=== PATIENT | male | born 1970 | race Caucasian/White ===

== ENCOUNTER 2021-02-03 12:08 | Emergency (ER) | payer OTHER, SELFPAY ==
[2021-02-03 12:18] VITALS: BP 140/90; PULSE 63; RESP 16; TEMP 36.7; O2SAT 97; BMI 35.9
--- NOTE | 2021-02-03 12:25 | ED_ITS ---
HPI - General Adult General Chief complaint: Urogenital-Male Stated complaint: Low ABD pain X 4 days Time Seen by Provider: 02/03/21 12:24 Source: patient Mode of arrival: Ambulatory Limitations: no limitations History of Present Illness HPI narrative: 50-year-old otherwise healthy gentleman presents with 3 days of pelvic floor/prostate pain. He is having difficulty sitting due to the discomfort. He has been able to stool and void appropriately but notes discomfort in the perineal area with both of these. He describes no penile discharge, no new sexual partners, no genital rashes, no vomiting or diarrhea. Has a moderate umbilical hernia that has not been bothering him and today he is noticing increasing low abdominal pain. He describes no fevers, cough, chills, palpitations, shortness of breath. He was seen in a walk-in clinic 48 hours ago blood work was done but no other interventions. He has not received blood work results at this point. The perineal discomfort is becoming troublesome enough that his wanted him to be further evaluated today. Related Data Home Medications Medication Instructions Recorded Confirmed citalopram 20 mg tablet 40 mg PO QDAY #0 12/10/12 omeprazole 20 mg capsule,delayed 20 mg PO QDAY #0 12/10/12 release zolpidem 10 mg tablet 12.5 mg PO HS #0 12/10/12 Previous Rx's Medication Instructions Recorded ciprofloxacin HCl 500 mg tablet 500 mg PO BID #14 tab 02/03/21 (Cipro) Allergies Allergy/AdvReac Type Severity Reaction Status Date / Time MYACINS Allergy Unknown Uncoded 09/30/17 12:25 PENICILLIN Allergy Unknown Uncoded 09/30/17 12:25 Review of Systems Review of Systems Narrative: Remainder of complete review of systems is otherwise unremarkable except for that included in the HPI. Patient History tobacco type: smokeless tobacco Substance Use Type: does not use Exam Narrative Exam Narrative: General: Healthy appearing, in no acute distress. Able to give a complete and coherent history. Well-nourished well-developed HEENT: Moist mucous membranes, normal sclera with reactive pupils, Respiratory: Lungs are clear to auscultation, no wheezing no rales no rhonchi. Full and symmetrical air movement Cardiac: Regular rate and rhythm no murmurs no bruits Abdomen: Soft, tender over the suprapubic area without rebound or guarding, good bowel tones, no flank pain. He does have a a moderate umbilical hernia and no evidence of inguinal hernias bilaterally Skin: Warm and dry, no rashes Genital exam: No evidence of external hemorrhoids, no rashes and exquisite tenderness over the perineum so much so that rectal exam is deferred Neurologic: Grossly neurologically intact with no obvious asymmetries or abnormalities Extremities: No trauma, well perfused Psych: Cooperative, appropriate insight and affect Initial Vital Signs Initial Vital Signs: Vital Signs Temperature 98.0 F 02/03/21 12:18 Pulse Rate 63 02/03/21 12:18 Respiratory Rate 16 02/03/21 12:18 Blood Pressure 140/90 02/03/21 12:18 Pulse Oximetry 97 02/03/21 12:18 Course Orders Ordered: ED Orders 02/03/21 13:16 Urinalysis and Microscopic Stat Discontinued Medications Acetaminophen (Acetaminophen 325 Mg Tablet) 325 mg PO NOW ONE Stop: 02/03/21 13:12 Ciprofloxacin (Ciprofloxacin 250 Mg Tablet) 500 mg PO NOW ONE Stop: 02/03/21 13:12 Ibuprofen (Ibuprofen 400 Mg Tablet) 400 mg PO NOW ONE Stop: 02/03/21 13:12 Vital Signs Vital signs: Vital Signs - 8 hr 02/03/21 12:18 Temperature 98.0 F Pulse Rate 63 Respiratory Rate 16 Blood Pressure 140/90 Pulse Oximetry 97 Medical Decision Making Lab Data Labs: Urine Dip Bedside Urine Glucose Negative Bedside Urine Bilirubin - Negative Bedside Urine Ketone - Negative Urine Specific [place] 1.015 Bedside Urine Occult Blood - Negative Bedside Urine pH 7 Bedside Urine Protein - Negative Bedside Urine Urobilinogen - Negative Bedside Urine Nitrite - Negative Bedside Urine Leukocytes - Negative Esterase Point of care testing: Urine Dip Bedside Urine Glucose Negative Bedside Urine Bilirubin - Negative Bedside Urine Ketone - Negative Urine Specific [place] 1.015 Bedside Urine Occult Blood - Negative Bedside Urine pH 7 Bedside Urine Protein - Negative Bedside Urine Urobilinogen - Negative Bedside Urine Nitrite - Negative Bedside Urine Leukocytes - Negative Esterase MDM Narrative Medical decision making narrative: 50-year-old gentleman with 3-4 days of increasing perineal pain and discomfort. He has had similar symptoms was diagnosed with prostatitis and went away with antibiotics. At this point his clinical exam is absolutely consistent with acute prostatitis however with his urine completely clear the diagnosis remains somewhat questionable. Reviewed the mild inconsistencies with him and recommended ibuprofen and Tylenol for pain control in inflammation and will place him on 7 days. Have asked him to return if symptoms are not improving, worsen or change. Discharge Plan Departure Patient Disposition: Home Clinical Impression: Prostatitis Qualifiers: Prostatitis type: acute Qualified Code(s): N41.0 - Acute prostatitis Instructions: Prostatitis Activity Restrictions/Additional Instructions: Thank you for coming in today Your clinical symptoms and exam are entirely consistent with prostatitis. I have given you a prescription for ciprofloxacin to help with this. Using ibuprofen for its anti-inflammatory properties is very helpful in controlling pain as well. Your urine sample in the emergency department was completely normal. It has been sent for microscopic exam. Typically with prostatitis we do expect to see some type of abnormalities in the urine. If you find that the antibiotics are not working, you need to return to the ER and we need to rethink the initial diagnosis. I hope you improved quickly Prescriptions: New ciprofloxacin HCl [Cipro] 500 mg tablet 500 mg PO BID Qty: 14 RF: 0 No Action omeprazole 20 MG capsule,delayed release(DR/EC) 20 mg PO QDAY Qty: 0 RF: 0 citalopram 20 MG tablet 40 mg PO QDAY Qty: 0 RF: 0 zolpidem 10 MG tablet 12.5 mg PO HS Qty: 0 RF: 0 Referrals: Javier Lake MD [Primary Care Provider] -
[2021-02-03] MEDS: CIPROFLOXACIN 250 MG TABLET 500 MG PO (13:26)
[2021-02-03] MEDS: ACETAMINOPHEN 325 MG TABLET PO (13:26)
[2021-02-03] MEDS: IBUPROFEN 400 MG TABLET PO (13:26)
[2021-02-03 13:28] LABS: Bacteria Urine None Seen; RBC Urine None Seen (0-5/HPF)
[2021-02-03 13:29] LABS: Appearance Urine UA CLEAR; Bilirubin Urine UA NEGATIVE (NEGATIVE); Color Urine UA YELLOW; Glucose Urine UA NEGATIVE (Negative); Ketones Urine UA NEGATIVE (NEGATIVE); Leukocyte Esterase Urine UA NEGATIVE (NEGATIVE); Nitrite Urine UA NEGATIVE (Negative); Occult Blood Urine UA NEGATIVE (Negative); Protein Urine UA NEGATIVE (Negative); Specific Gravity Urine UA 1.015 (1.000-1.035); Urobilinogen Urine UA 0.2 E.U./dL (0.2); pH Urine UA 7.5 (4.5-8.0)
[2021-02-03 13:36] LABS: Culture Indicated Urine Cult Not Indicated; Squamous Epithelial Cell Urine 0-1 /HPF (0-5/HPF); WBC Urine 0-1/HPF (0-5/HPF)
[2021-02-03 13:46] VITALS: BP 134/83; PULSE 58; O2SAT 98
== END 2021-02-03 13:47 | disposition home or self-care (01) ==
PROVIDERS: Emergency Provider Emergency Medicine; PCP Family Medicine
DX: N41.0 Acute prostatitis (principal)
CPT/HCPCS: 81001; 81003; 99283

== ENCOUNTER 2021-03-08 12:13 | Inpatient (IN) | payer OTHER, SELFPAY ==
[2021-03-08] VITALS (14 sets, daily range): BP systolic 116–135; BP diastolic 56–80; PULSE 75–83; RESP 15–18; TEMP 36.7–38.4; O2SAT 95–99; BMI 35.2
--- NOTE | 2021-03-08 12:30 | ED_ITS ---
HPI - Skin/Abscess/Foreign Bdy General Chief complaint: Skin/Abscess/Foreign Body Stated complaint: painful swollen mass on left side of buttox Time Seen by Provider: 03/08/21 12:30 Source: patient Mode of arrival: Ambulatory Limitations: no limitations History of Present Illness HPI narrative: This is a 50-year-old male comes emergency department having had prostatitis in the last several weeks. He saw the urologist in the office and had prostate massage on Thursday. He states it was quite excruciating. The fluid since has not grown any infection. Patient states that he has since developed increasing redness and swelling and pain of the left buttock that radiates towards the rectal area. Patient had fevers up to 101 F at home he has had nausea but no active vomiting. He has had occasional intra-abdominal pain but majority has been in the buttock and rectal region. He had 1 bowel movement last night which was quite painful passing as well as attempting to sit on a stool. He has had warmth and redness. Patient has not had similar symptoms in the past he is currently on Cipro 500 mg twice daily. He takes medication for bipolar. He had hernia repair in his younger years. Patient has quit using tobacco or chew. He does drink alcohol intermittently. He occasionally uses marijuana but denies other illicit. He is accompanied by his today. Related Data Home Medications Medication Instructions Recorded Confirmed divalproex 500 mg tablet,extended 1,000 mg PO QPM 03/08/21 03/08/21 release 24 hr tamsulosin 0.4 mg capsule 0.4 mg PO QPM 03/08/21 03/08/21 Previous Rx's Medication Instructions Recorded ciprofloxacin HCl 500 mg tablet 500 mg PO BID #14 tab 02/03/21 (Cipro) Allergies Allergy/AdvReac Type Severity Reaction Status Date / Time erythromycin base Allergy Severe Anaphylaxis Verified 03/08/21 17:13 Macrolide Antibiotics Allergy Severe Anaphylaxis Verified 03/08/21 17:13 Penicillins Allergy Severe Anaphylaxis Verified 03/08/21 17:13 Review of Systems Review of Systems ROS Unobtainable: All systems reviewed & are unremarkable except as noted in HPI and below Patient History Medical History Bipolar 1 disorder Surgical History S/P foot surgery, right Family History Mother Cancer Father Cancer Social History household members: spouse Smoking Status: Former smoker alcohol intake: current tobacco type: smokeless tobacco Substance Use Type: marijuana Exam Narrative Exam Narrative: GENERAL: Alert and oriented x three, male in moderate distress. HEENT: Head normocephalic, atraumatic, EOMI, pupils reactive, face symmetric, moist mucous membranes NECK: Supple, full range of motion CARDIOVASCULAR: Regular rate and rhythm without murmurs, rubs or gallops. RESPIRATORY: Breath sounds equal bilaterally, no wheezes rales or rhonchi. ABDOMEN: Soft, nontender. Normoactive bowel sounds all 4 quadrants. No guarding or rebound, rigidity, no mass, patient has warmth swelling and significant tenderness of the left buttock on the medial portion of the gluteal crease. There is an area of about 9 cm x 5cm of warmth, erythema and induration with no obvious palpable fluctuance. : No CVA tenderness. Male: normal external examination, no penile discharge or lesions, testicles non-tender, cremasteric reflex intact, no inguinal hernias noted. EXTREMITIES: Normal range of motion, no clubbing or edema. Neurovascularly intact NEUROLOGICAL: Cranial nerves II through XII grossly intact. Moving all extremities SKIN: Warm, dry, no petechiae, no rashes or lesions otherwise noted. Initial Vital Signs Initial Vital Signs: Vital Signs Temperature 98.1 F 03/08/21 12:22 Pulse Rate 78 03/08/21 12:22 Respiratory Rate 18 03/08/21 12:22 Blood Pressure 118/56 L 03/08/21 12:22 Pulse Oximetry 99 03/08/21 12:22 Course Orders Ordered: Acetaminophen (Acetaminophen 325 Mg Tablet) 975 mg PO Q8H PRN PRN Reason: Pain, Mild (1-3) Last Admin: 03/09/21 21:09 Dose: 975 mg Documented by: Admin: 03/09/21 11:39 Dose: 975 mg Documented by: Admin: 03/08/21 19:59 Dose: 975 mg Documented by: MAXIMILIAN Acetaminophen (Acetaminophen 325 Mg Tablet) 975 mg PO PACUNOW PRN PRN Reason: Pain, Mild (1-3) Benzocaine (Benzocaine/Menthol 1 Lizzeth Pkt) 1 each PO PRN PRN PRN Reason: Sore Throat Ciprofloxacin (Ciprofloxacin 250 Mg Tablet) 500 mg PO BID [facility] Divalproex Sodium (Divalproex Er 250 Mg Tab) 1,000 mg PO 2100 [facility] Last Admin: 03/09/21 20:25 Dose: 1,000 mg Documented by: Admin: 03/08/21 21:09 Dose: 1,000 mg Documented by: MAXIMILIAN Docusate Sodium (Docusate 100 Mg Capsule) 100 mg PO BID [facility] Last Admin: 03/10/21 09:05 Dose: 100 mg Documented by: Admin: 03/09/21 20:25 Dose: 100 mg Documented by: Admin: 03/09/21 08:01 Dose: 100 mg Documented by: Admin: 03/08/21 19:59 Dose: 100 mg Documented by: MAXIMILIAN Fentanyl (Fentanyl 100 Mcg/2 Ml Inj) 0 mcg IV Q5M PRN PRN Reason: Pain, Moderate (4-6) Hydromorphone HCl (Hydromorphone 2 Mg Inj) 2 mg IV Q3H PRN PRN Reason: Pain, Severe (7-10) Hydromorphone HCl (Hydromorphone 1 Mg Inj) 1 mg IV Q3H PRN PRN Reason: Pain, Moderate (4-6) Hydromorphone HCl (Hydromorphone 2 Mg Inj) 0 mg IV Q5M PRN PRN Reason: Pain, Moderate (4-6) Hydroxyzine HCl (Hydroxyzine 50 Mg/Ml Inj) 25 mg IM NOW PRN PRN Reason: Pain, Mild (1-3) Hydroxyzine Pamoate (Hydroxyzine Pamoate 25 Mg Capsule) 25 mg PO NOW PRN PRN Reason: Pain, Mild (1-3) Lactated Ringer's (Lactated Ringers) 1,000 mls @ 42 mls/hr IV CONT [facility] Last Infusion: 03/10/21 12:34 Dose: 0 mls/hr Documented by: Admin: 03/10/21 11:00 Dose: 42 mls/hr Documented by: RUI Lactated Ringer's (Lactated Ringers) 1,000 mls @ 120 mls/hr IV CONT [facility] Last Admin: 03/10/21 13:16 Dose: 120 mls/hr Documented by: TEOFILO Ketorolac Tromethamine (Ketorolac 10 Mg Tablet) 10 mg PO Q6HR PRN PRN Reason: Pain, Mild (1-3) Stop: 03/13/21 18:33 Last Admin: 03/10/21 09:05 Dose: 10 mg Documented by: Admin: 03/10/21 00:14 Dose: 10 mg Documented by: Admin: 03/09/21 18:20 Dose: 10 mg Documented by: Admin: 03/09/21 11:18 Dose: 10 mg Documented by: ALEAH Lidocaine (Lidocaine 5% Oint 35 Gm) 1 applic TOP QID PRN PRN Reason: Pain, Mild (1-3) Last Admin: 03/09/21 14:02 Dose: 1 applic Documented by: ALEAH Lorazepam (Lorazepam 2 Mg/Ml Inj) 0.25 mg IV NOW PRN PRN Reason: Anxiety Metoclopramide HCl (Metoclopramide 10 Mg/2 Ml Inj) 10 mg IV NOW PRN PRN Reason: Nausea And Vomiting Ondansetron HCl (Ondansetron 4 Mg/2 Ml Inj) 4 mg IV NOW PRN PRN Reason: Nausea And Vomiting Oxycodone HCl (Oxycodone Ir 10 Mg Tablet) 10 mg PO Q3HR PRN PRN Reason: Pain, Severe (7-10) Last Admin: 03/10/21 09:05 Dose: 10 mg Documented by: Admin: 03/10/21 05:58 Dose: 10 mg Documented by: Admin: 03/10/21 03:36 Dose: 10 mg Documented by: Admin: 03/09/21 20:25 Dose: 10 mg Documented by: Admin: 03/09/21 15:54 Dose: 10 mg Documented by: ELIDA Oxycodone HCl (Oxycodone Ir 5 Mg Tablet) 5 mg PO PACUNOW PRN PRN Reason: Mild or moderate pain Pantoprazole Sodium (Pantoprazole Dr 40 Mg Tablet) 40 mg PO DAILY@0700 [facility] Last Admin: 03/10/21 06:04 Dose: 40 mg Documented by: VALE Polyethylene Glycol (Polyethylene Glycol 3350 17 Gm Powd.Pack) 17 gm PO DAILY [facility] Last Admin: 03/10/21 09:05 Dose: 17 gm Documented by: Admin: 03/09/21 08:55 Dose: 17 gm Documented by: ALEAH Tamsulosin HCl (Tamsulosin 0.4 Mg Capsule) 0.4 mg PO QPM [facility] Discontinued Medications Acetaminophen (Acetaminophen 325 Mg Tablet) 975 mg PO NOW ONE Stop: 03/08/21 14:31 Last Admin: 03/08/21 14:34 Dose: 975 mg Documented by: THANIA Hydrocodone Bitart/Acetaminophen (Hydrocodone/Acet 10/325 Tablet) 1 tab PO Q6HR PRN PRN Reason: Pain, Moderate (4-6) Last Admin: 03/09/21 08:01 Dose: 1 tab Documented by: Admin: 03/09/21 01:22 Dose: 1 tab Documented by: Admin: 03/08/21 18:53 Dose: 1 tab Documented by: MAXIMILIAN Bupivacaine HCl (Bupivacaine 0.5% (Pf) Vial) 30 ml INJ NOW ONE Stop: 03/10/21 11:30 Last Admin: 03/10/21 11:29 Dose: 20 ml Documented by: ROBERT Epinephrine HCl (Epinephrine 1 Mg/Ml) 0.15 mg INJ NOW ONE Stop: 03/10/21 11:31 Last Admin: 03/10/21 11:31 Dose: 0.15 mg Documented by: ROBERT Vancomycin HCl/Dextrose (Vancomycin) 2,000 mg in 400 mls @ 200 mls/hr IV NOW ONE Stop: 03/08/21 14:43 Last Infusion: 03/08/21 15:31 Dose: 0 mls/hr Documented by: Admin: 03/08/21 13:17 Dose: 200 mls/hr Documented by: THANIA Metronidazole (Flagyl) 500 mg in 100 mls @ 100 mls/hr IV NOW ONE Stop: 03/08/21 13:43 Last Infusion: 03/08/21 15:07 Dose: 0 mls/hr Documented by: Admin: 03/08/21 14:02 Dose: 100 mls/hr Documented by: THANIA Ciprofloxacin (Cipro) 400 mg in 200 mls @ 200 mls/hr IV Q12H [facility] Last Infusion: 03/10/21 08:05 Dose: 0 mls/hr Documented by: Admin: 03/10/21 05:58 Dose: 200 mls/hr Documented by: Infusion: 03/09/21 23:09 Dose: 0 mls/hr Documented by: Admin: 03/09/21 18:19 Dose: 200 mls/hr Documented by: Infusion: 03/09/21 07:53 Dose: 0 mls/hr Documented by: Admin: 03/09/21 06:26 Dose: 200 mls/hr Documented by: Infusion: 03/08/21 20:58 Dose: 200 mls/hr Documented by: Admin: 03/08/21 18:53 Dose: 200 mls/hr Documented by: MAXIMILIAN Metronidazole (Flagyl) 500 mg in 100 mls @ 100 mls/hr IV Q8H [facility] Last Admin: 03/10/21 13:14 Dose: Not Given Documented by: Infusion: 03/10/21 05:30 Dose: 0 mls/hr Documented by: Admin: 03/10/21 04:26 Dose: 100 mls/hr Documented by: Infusion: 03/09/21 23:08 Dose: 0 mls/hr Documented by: Admin: 03/09/21 20:25 Dose: 100 mls/hr Documented by: Infusion: 03/09/21 15:02 Dose: 100 mls/hr Documented by: Admin: 03/09/21 14:02 Dose: 100 mls/hr Documented by: Infusion: 03/09/21 05:40 Dose: 0 mls/hr Documented by: Admin: 03/09/21 04:36 Dose: 100 mls/hr Documented by: Infusion: 03/08/21 23:00 Dose: 0 mls/hr Documented by: Admin: 03/08/21 20:55 Dose: 100 mls/hr Documented by: MAXIMILIAN Ketorolac Tromethamine (Ketorolac 30 Mg/Ml Vial) 30 mg IV NOW ONE Stop: 03/08/21 12:45 Last Admin: 03/08/21 12:54 Dose: 30 mg Documented by: THANIA Ketorolac Tromethamine (Ketorolac 30 Mg/Ml Vial) 30 mg IV Q6H [facility] Stop: 03/13/21 18:34 Last Admin: 03/09/21 06:25 Dose: 30 mg Documented by: Admin: 03/09/21 01:17 Dose: 30 mg Documented by: Admin: 03/08/21 19:16 Dose: 30 mg Documented by: MAXIMILIAN Pantoprazole Sodium (Pantoprazole 40 Mg Vial) 40 mg IV DAILY [facility] Last Admin: 03/09/21 08:01 Dose: 40 mg Documented by: Admin: 03/09/21 05:43 Dose: 40 mg Documented by: FRANK Consultations Consultation #1: Hi-you had patient's imaging. She would like us to speak with urology. Dr. Do was re-contacted after speaking with urology. They suspect that this is truly a perineal abscess that is now progressing in size and location and that patient never truly had prostatitis is there prostate fluid culture was negative after 5 days which is very atypical. The patient has been on Cipro b.i.d. since then. Patient at this time he does not feel it is a urological candidate for treatment. Patient was covered with vanco and Flagyl. He does have an allergy to penicillins which is anaphylaxis so have not given any Rocephin or Zosyn coverage. She is comfortable with the current coverage. She will see patient. She is unsure if she plans to take him to the OR today. Consultation #2: Dr. Bolivar-urology. States that he suspects this was truly a perineal abscess forming and was not an actual prostatitis as patient had massage with but no additional changes and prostate fluids have been negative. And he feels this is more of a general surgery issue. Consultation #3: Dr. Littlejohn, kindly accepts for admission with consultation by General surgery. He is going to talk with Dr. Do about when or if the patient is going to the OR. Vital Signs Vital signs: Vital Signs - 8 hr 03/08/21 12:22 03/08/21 13:00 03/08/21 14:00 Temperature 98.1 F 101.1 F H Pulse Rate 78 75 77 Respiratory Rate 18 16 15 Blood Pressure 118/56 L 135/63 117/56 L Pulse Oximetry 99 99 96 03/08/21 14:29 03/08/21 14:30 03/08/21 15:00 Temperature 101.1 F H Pulse Rate 77 75 Respiratory Rate 15 16 Blood Pressure 116/56 L 130/73 Pulse Oximetry 96 96 03/08/21 15:14 03/08/21 15:30 03/08/21 15:58 Temperature 100.5 F H 99.2 F Pulse Rate 77 Respiratory Rate 16 Blood Pressure 132/67 Pulse Oximetry 95 MDM - Skin/Abscess/Foreign Bdy Lab Data Result diagrams: 03/10/21 05:28 03/10/21 05:28 Labs: Lab Results 03/08/21 03/08/21 03/08/21 Range/Units 12:45 12:45 12:45 WBC 11.3 H (4.5-11.0) X10^3/uL RBC 4.40 L (4.5-5.9) X10^6/uL Hgb 14.0 (13.5-17.5) g/dL Hct 41.2 (41-53) % MCV 93.6 (80-100) fL MCH 31.9 (26-34) PG MCHC 34.1 (30-36) % RDW 12.8 (11.6-14.8) % Plt Count 180 (150-400) X10^3/uL Neut % (Auto) 77.1 H (50-75) % Lymph % (Auto) 11.0 L (25-40) % [place] % (Auto) 10.8 (3-14) % Eos % (Auto) 0.8 L (2-4) % Baso % (Auto) 0.3 (0-2) % Neut # (Auto) 8700 H (0756-8167) /uL Lymph # (Auto) 1200 (6470-3898) /uL [place] # (Auto) 1200 H (0-900) /uL Eos # (Auto) 100 (0-450) /uL Baso # (Auto) 0 (0-100) /uL Sodium 141 (137-145) mmol/L Potassium 4.5 (3.4-5.1) mmol/L Chloride 106 (98-107) mmol/L Carbon Dioxide 31 (22-32) mmol/L BUN 12 (9-20) mg/dL Creatinine 0.96 (0.66-1.25) mg/dL Estimated GFR > 60.0 (>60) mL/min BUN/Creatinine Ratio 12.5 (6-22) Glucose 102 H (70-100) mg/dL Lactate 1.4 (0.7-2.1) mmol/L Calcium 9.4 (8.4-10.2) mg/dL Total Bilirubin 1.2 (0.2-1.3) mg/dL AST 16 L (17-59) IU/L ALT 14 (<50) IU/L Alkaline Phosphatase 45 (38-126) U/L Total Protein 7.1 (6.3-8.2) g/dL Albumin 4.0 (3.5-5.0) g/dL Globulin 3.1 (1.7-4.1) g/dL Albumin/Globulin Ratio 1.3 (1.0-2.8) Procalcitonin 0.08 (<0.5) ng/mL Urine Color Urine Appearance Urine pH (4.5-8.0) Ur Specific [place] (1.000-1.035) Urine Protein (Negative) Urine Glucose (UA) (Negative) g/dL Urine Ketones (NEGATIVE) Urine Occult Blood (Negative) Urine Nitrate (Negative) Urine Bilirubin (NEGATIVE) Urine Urobilinogen (0.2) E.U./dL Ur Leukocyte Esterase (NEGATIVE) Urine RBC (0-5/HPF) Urine WBC (0-5/HPF) Ur Squamous Epith Cells (0-5/HPF) Urine Bacteria (None) Ur Culture Indicated? SARS-CoV-2 (PCR) (Negative) 03/08/21 03/08/21 Range/Units 14:10 14:26 WBC (4.5-11.0) X10^3/uL RBC (4.5-5.9) X10^6/uL Hgb (13.5-17.5) g/dL Hct (41-53) % MCV (80-100) fL MCH (26-34) PG MCHC (30-36) % RDW (11.6-14.8) % Plt Count (150-400) X10^3/uL Neut % (Auto) (50-75) % Lymph % (Auto) (25-40) % [place] % (Auto) (3-14) % Eos % (Auto) (2-4) % Baso % (Auto) (0-2) % Neut # (Auto) (5807-9991) /uL Lymph # (Auto) (4059-2547) /uL [place] # (Auto) (0-900) /uL Eos # (Auto) (0-450) /uL Baso # (Auto) (0-100) /uL Sodium (137-145) mmol/L Potassium (3.4-5.1) mmol/L Chloride (98-107) mmol/L Carbon Dioxide (22-32) mmol/L BUN (9-20) mg/dL Creatinine (0.66-1.25) mg/dL Estimated GFR (>60) mL/min BUN/Creatinine Ratio (6-22) Glucose (70-100) mg/dL Lactate (0.7-2.1) mmol/L Calcium (8.4-10.2) mg/dL Total Bilirubin (0.2-1.3) mg/dL AST (17-59) IU/L ALT (<50) IU/L Alkaline Phosphatase (38-126) U/L Total Protein (6.3-8.2) g/dL Albumin (3.5-5.0) g/dL Globulin (1.7-4.1) g/dL Albumin/Globulin Ratio (1.0-2.8) Procalcitonin (<0.5) ng/mL Urine Color Yellow Urine Appearance Clear Urine pH 7.0 (4.5-8.0) Ur Specific [place] 1.010 (1.000-1.035) Urine Protein Trace H (Negative) Urine Glucose (UA) Negative (Negative) g/dL Urine Ketones 1+ H (NEGATIVE) Urine Occult Blood Negative (Negative) Urine Nitrate Negative (Negative) Urine Bilirubin Negative (NEGATIVE) Urine Urobilinogen 0.2 (0.2) E.U./dL Ur Leukocyte Esterase Negative (NEGATIVE) Urine RBC None seen (0-5/HPF) Urine WBC 0-1/hpf (0-5/HPF) Ur Squamous Epith Cells 0-1 /hpf (0-5/HPF) Urine Bacteria None seen (None) Ur Culture Indicated? Cult not indicated SARS-CoV-2 (PCR) Negative (Negative) Imaging Data CT scan - abdomen/pelvis: Radiologist's Impression: [address] [address] [address] Scan Report Signed Patient: Mandeep Umanzor MR#: [id number] : 1970 Acct:[id number] Age/Sex: 50 / M Date of Service: 03/08/21 Loc: ED Accession Number: [id number] ?? Procedure: CT abdomen pelvis w con Ordering Provider: Mishel Adames D.O. PROCEDURE:? CT ABDOMEN PELVIS W CON ? INDICATIONS:? LL buttock absc/cellulitis, start Tues prostate massage Mon. ? TECHNIQUE:? After the administration of intravenous contrast, axial sections acquired from the lung bases to the pubic symphysis.? Coronal and sagittal reformats were performed.? For radiation dose reduction, the following was used:? automated exposure control, adjustment of mA and/or kV according to patient size.? ? COMPARISON:? None. ? FINDINGS:? Image quality:? Excellent.? ? Lung bases:? Unremarkable. Heart:? No significant findings. ? ABDOMEN: Liver:? Liver is normal in size.? Hepatic steatosis is seen.? Well-circumscribed hypodense areas involving lateral segment of left hepatic lobe are seen measures 2.3 x 2.5 cm in size series 2, image 24, and 1 cm in size series 2, image 20. Gallbladder:? Within normal limits. Biliary ducts:? Unremarkable.? ? Pancreas:? Unremarkable.? ? Spleen:? Unremarkable.? ? Adrenal Glands:? Unremarkable.? ? Kidneys and Ureters:? Unremarkable.? ? ? Stomach and Bowel:? There is no bowel obstruction or abnormal bowel wall thickening.? No mesenteric fat stranding.? No abscess collection. Peritoneum:? No abnormal intraperitoneal fluid.? No free air.? ? Ventral Wall: ? Moderate size umbilical hernia is seen containing fat only. Abdominal Nodes:? No retroperitoneal or mesenteric adenopathy by size criteria.? Vessels:? Aorta and inferior vena cava are normal in size.? ? PELVIS: Pelvic Organs:? Unremarkable.? ? Bladder:? Unremarkable.? ? Pelvic Nodes: No enlarged lymph nodes.? Miscellaneous:? There is extensive subcutaneous fat stranding in perianal soft tissue with subcutaneous emphysema in perianal soft tissue particularly along medial aspect of left upper thigh with air-fluid level and suggestion of developing abscess collection measures 2.8 x 6.5 cm in transverse and AP dimensions. ? Bones:? No suspicious bony lesion.? No bony erosive changes.? No acute vertebral body compression fracture.? Chronic appearing mild anterior wedge compression deformity at L1 level is seen. ? ? IMPRESSION:? 1. Left perianal/medial left upper thigh cellulitis and abscess formation as described above. 2. No peritoneal free fluid or free air.? No peritoneal abscess collection.? No bowel obstruction or abnormal bowel wall thickening. 3.? Hepatic steatosis and suggestion of left hepatic cysts as above.? ? ? Dictated by: Mikhail Ward M.D. on 03/08/2021 at 13:49 ? ? Approved by: Mikhail Ward M.D. on 03/08/2021 at 13:58?? [facility] Narrative Medical decision making narrative: This is a 50-year-old male who comes with complaint of increased redness swelling and pain of the left buttock who has q uite indurated area but no easily palpated fluctuance. It is quite close to the perineal area he states symptoms began to develop on Thursday. The day before on Thursday he had a prostate massage to obtain prostatic fluid for culture which he states has been negative so far. He has been on Cipro for assumed prostatitis. Patient is febrile here in the department although he does not meet septic cr iteria. I spoke with General surgery as I feel this patient might be a candidate for the OR. Um she asked that we speak with Urology. I spoke with patient's neurologist who saw him on Thursday who feels this was likely a perineal abscess all along which has since progressed and not truly prostatitis or you look urologic issue. Re-contacted general surgery who asked that we admit him under medicine with Dr. Littlejohn who accepted for admission. Discharge Plan Departure Patient Disposition: Admitted As Inpatient Clinical Impression: Abscess, perianal, Cellulitis and abscess of buttock Admit Date/Time: 03/08/21 16:33 Admit Provider: Chester Littlejohn
--- NOTE | 2021-03-08 12:38 | DI.CT.S_ITS ---
PROCEDURE: CT ABDOMEN PELVIS W CON INDICATIONS: LL buttock absc/cellulitis, start Tues prostate massage Mon. TECHNIQUE: After the administration of intravenous contrast, axial sections acquired from the lung bases to the pubic symphysis. Coronal and sagittal reformats were performed. For radiation dose reduction, the following was used: automated exposure control, adjustment of mA and/or kV according to patient size. COMPARISON: None. FINDINGS: Image quality: Excellent. Lung bases: Unremarkable. Heart: No significant findings. ABDOMEN: Liver: Liver is normal in size. Hepatic steatosis is seen. Well-circumscribed hypodense areas involving lateral segment of left hepatic lobe are seen measures 2.3 x 2.5 cm in size series 2, image 24, and 1 cm in size series 2, image 20. Gallbladder: Within normal limits. Biliary ducts: Unremarkable. Pancreas: Unremarkable. Spleen: Unremarkable. Adrenal Glands: Unremarkable. Kidneys and Ureters: Unremarkable. Stomach and Bowel: There is no bowel obstruction or abnormal bowel wall thickening. No mesenteric fat stranding. No abscess collection. Peritoneum: No abnormal intraperitoneal fluid. No free air. Ventral Wall: Moderate size umbilical hernia is seen containing fat only. Abdominal Nodes: No retroperitoneal or mesenteric adenopathy by size criteria. Vessels: Aorta and inferior vena cava are normal in size. PELVIS: Pelvic Organs: Unremarkable. Bladder: Unremarkable. Pelvic Nodes: No enlarged lymph nodes. Miscellaneous: There is extensive subcutaneous fat stranding in perianal soft tissue with subcutaneous emphysema in perianal soft tissue particularly along medial aspect of left upper thigh with air-fluid level and suggestion of developing abscess collection measures 2.8 x 6.5 cm in transverse and AP dimensions. Bones: No suspicious bony lesion. No bony erosive changes. No acute vertebral body compression fracture. Chronic appearing mild anterior wedge compression deformity at L1 level is seen. IMPRESSION: 1. Left perianal/medial left upper thigh cellulitis and abscess formation as described above. 2. No peritoneal free fluid or free air. No peritoneal abscess collection. No bowel obstruction or abnormal bowel wall thickening. 3. Hepatic steatosis and suggestion of left hepatic cysts as above. Dictated by: Mikhail Ward M.D. on 03/08/2021 at 13:49 Approved by: Mikhail Ward M.D. on 03/08/2021 at 13:58
[2021-03-08] MEDS: KETOROLAC 30 MG/ML VIAL IV ×2 (12:54→19:16)
[2021-03-08 12:58] LABS: Add Manual Diff / Slide Review NO; Basophils Absolute Auto 0 /uL (0-100); Basophils Percent Auto 0.3 % (0-2); Eosinophils Absolute Auto 100 /uL (0-450); Eosinophils Percent Auto 0.8 % (2-4); Hematocrit 41.2 % (41-53); Lymphocytes Absolute Auto 1200 /uL (1100-4500); Mean Corpuscular HGB Conc 34.1 % (30-36); Mean Corpuscular Hemoglobin 31.9 PG (26-34); Mean Corpuscular Volume 93.6 fL (80-100); Monocytes Absolute Auto 1200 /uL (0-900); Monocytes Percent Auto 10.8 % (3-14); Neutrophils Absolute Auto 8700 /uL (1500-7000); Neutrophils Percent Auto 77.1 % (50-75); Platelet Count 180 X10^3/uL (150-400); Red Cell Distribution Width 12.8 % (11.6-14.8); White Blood Cell Count 11.3 X10^3/uL (4.5-11.0)
[2021-03-08 13:15] LABS: Lactate (Lactic Acid) 1.4 mmol/L (0.7-2.1)
[2021-03-08 13:16] LABS: Alanine Aminotransferase 14 IU/L (<50); Albumin Globulin Ratio 1.3 (1.0-2.8); Alkaline Phosphatase 45 U/L (38-126); Aspartate Aminotransferase 16 IU/L (17-59); BUN Creatinine Ratio 12.5 (6-22); Bilirubin Total 1.2 mg/dL (0.2-1.3); Blood Urea Nitrogen 12 mg/dL (9-20); Calcium 9.4 mg/dL (8.4-10.2); Carbon Dioxide 31 mmol/L (22-32); Chloride 106 mmol/L (98-107); Estimated Glomerular Filt Rate > 60.0 mL/min (>60); Globulin 3.1 g/dL (1.7-4.1); Glucose 102 mg/dL (70-100); HEMOLYSIS < 15 (0-50); Potassium 4.5 mmol/L (3.4-5.1); Sodium 141 mmol/L (137-145); Total Protein 7.1 g/dL (6.3-8.2)
[2021-03-08] MEDS: VANCOMYCIN 2,000 MG/400 ML PIGGYBACK 200 MG IV (13:17)
[2021-03-08 13:32] LABS: Procalcitonin 0.08 ng/mL (<0.5)
[2021-03-08] MEDS: metroNIDAZOLE 500 MG/100 ML PIGGYBACK 100 MG IV ×2 (14:02→20:55)
[2021-03-08 14:25] LABS: Appearance Urine UA CLEAR; Bilirubin Urine UA NEGATIVE (NEGATIVE); Color Urine UA YELLOW; Glucose Urine UA NEGATIVE (Negative); Ketones Urine UA 1+ (NEGATIVE); Leukocyte Esterase Urine UA NEGATIVE (NEGATIVE); Nitrite Urine UA NEGATIVE (Negative); Occult Blood Urine UA NEGATIVE (Negative); Protein Urine UA TRACE (Negative); Urobilinogen Urine UA 0.2 E.U./dL (0.2)
[2021-03-08] MEDS: ACETAMINOPHEN 325 MG TABLET 975 MG PO ×2 (14:34→19:59)
[2021-03-08 14:35] LABS: RBC Urine None Seen (0-5/HPF); Squamous Epithelial Cell Urine 0-1 /HPF (0-5/HPF); WBC Urine 0-1/HPF (0-5/HPF)
[2021-03-08 14:36] LABS: Bacteria Urine None Seen; Culture Indicated Urine Cult Not Indicated
[2021-03-08 15:03] LABS: COVID19 -Nasal RAPID Negative (Negative)
--- NOTE | 2021-03-08 17:59 | DI.US.S_ITS ---
PROCEDURE: US EXTREMITY NONVASC LOWER LT INDICATIONS: left buttock and leg swelling, assess for drainable abscess TECHNIQUE: Real-time scanning was performed of the left gluteal region, with image documentation. COMPARISON: None. FINDINGS: Soft tissue edema is seen at the area of interest in the left buttock. No discrete fluid collection or abscess is seen. IMPRESSION: Nonspecific soft tissue edema without a focal fluid collection or abscess. Dictated by: Sancho Dorsey M.D. on 03/08/2021 at 18:34 Approved by: Sancho Dorsey M.D. on 03/08/2021 at 18:35
--- NOTE | 2021-03-08 18:00 | PM.HP.1 ---
History of Present Illness History of Present Illness Date Patient Seen: 03/08/21 Time Patient Seen: 18:00 Chief complaint: painful swollen mass on left side of buttox Narrative: This is a 50 year old male, PMH of bipolar disorder who presents to the ER with worsening perirectal pain and sweeling. Last month he was in the emergency room for rectal pain, diagnosed with possible prostatitis and was sent home on ciprofloxacin. Five days ago he followed up with a urologist in [place] who performed a prostate massage which the patient states was quite tender. He states that the massage was actually more tender posteriorly. Since then he has had worsening pain as well as swelling on the left side of his buttock. Bowel movements are quite painful, as is sometimes passing gas. He denies abdominal pain, nausea, vomiting. Did have fever at home to 101. In the emergency room the patient was febrile, but the remainder of his vital signs were unremarkable. Initial laboratory evaluations revealed a mild leukocytosis with WBC 11.3, but the remainder of his studies were unremarkable. Urinalysis did not show evidence of current infection. COVID-19 testing was negative. General surgery was consulted in the emergency room and did not feel that there was a drainable collection currently. He was admitted to Medicine for IV antibiotic therapy and continued monitoring for possible perirectal abscess. Patient History Medical History (Updated 03/08/21 @ 18:03 by Chester Littlejohn DO) Bipolar 1 disorder Surgical History (Updated 03/08/21 @ 18:03 by Chester Littlejohn DO) S/P foot surgery, right Family & Social History Family History (Updated 03/08/21 @ 18:04 by Chester Littlejohn DO) Mother Cancer Father Cancer Social History: household members spouse Prior Living Arrangements House Safety & Behavioral: Feels Safe in Current Yes Environment Been Physically Hurt or No Threatened By a Person Suicidal Ideation Description None Suicide Plan Description No Plan Tobacco & Substance use: Smoking Status Former smoker alcohol intake current alcohol intake frequency a few times a month Substance Use Type marijuana Meds Home Medications and Allergies Home Medications Medication Instructions Recorded Confirmed Type ciprofloxacin HCl 500 mg tablet 500 mg PO BID #14 tab 02/03/21 03/08/21 Rx (Cipro) divalproex 500 mg tablet,extended 1,000 mg PO QPM 03/08/21 03/08/21 History release 24 hr tamsulosin 0.4 mg capsule 0.4 mg PO QPM 03/08/21 03/08/21 History Allergies Allergy/AdvReac Type Severity Reaction Status Date / Time erythromycin base Allergy Severe Anaphylaxis Verified 03/08/21 17:13 Macrolide Antibiotics Allergy Severe Anaphylaxis Verified 03/08/21 17:13 Penicillins Allergy Severe Anaphylaxis Verified 03/08/21 17:13 Review of Systems Review of Systems Narrative: All other systems reviewed with the patient and are negative unless otherwise stated. Exam Vital Signs (past 8 hours): - 03/08/21 12:22 03/08/21 13:00 03/08/21 14:00 Temperature 98.1 F 101.1 F H Pulse Rate 78 75 77 Respiratory Rate 18 16 15 Blood Pressure 118/56 L 135/63 117/56 L Pulse Oximetry 99 99 96 03/08/21 14:29 03/08/21 14:30 03/08/21 15:00 Temperature 101.1 F H Pulse Rate 77 75 Respiratory Rate 15 16 Blood Pressure 116/56 L 130/73 Pulse Oximetry 96 96 03/08/21 15:14 03/08/21 15:30 03/08/21 15:58 Temperature 100.5 F H 99.2 F Pulse Rate 77 Respiratory Rate 16 Blood Pressure 132/67 Pulse Oximetry 95 03/08/21 16:30 Temperature Pulse Rate 75 Respiratory Rate 15 Blood Pressure 120/59 L Pulse Oximetry 96 Oxygen Delivery Method Room Air Narrative Exam Narrative: GENERAL APPEARANCE: Well developed, well nourished, in moderate discomfort due to pain lying in a right lateral recumbent position SKIN: mild left buttock erythema, no other rashes or skin lesions. HEENT: Normocephalic atraumatic, extraocular muscles are intact, oropharynx is clear and mucous membranes are moist NECK: Supple and symmetric. There was no thyroid enlargement, and no tenderness, or masses were felt. CHEST: Normal AP diameter and normal contour without any kyphoscoliosis. LUNGS: Auscultation of the lungs revealed no wheezes, rhonchi, or rales. CARDIOVASCULAR: There was a regular rate and rhythm without any murmurs, gallops, rubs. Peripheral pulses were 2+ and symmetric. ABDOMEN: Soft, nontender, nondistended. Rectum: external exam performed, left sided buttock swelling, tender, with mild erythema, ? pustule near buttock fold. swelling and firmness extends to left upper thigh. MUSCULOSKELETAL: There was no tenderness or effusions noted. Muscle strength and tone were normal. EXTREMITIES: No cyanosis, clubbing or edema. NEUROLOGIC: Alert and oriented x 3. Normal affect. Gait was normal. Strength is +5/5 in the Upper Extremities and Lower Extremities Bilaterally. Sensation to touch was normal. Objective Imaging CT scan - abdomen: Radiologist's impression: PROCEDURE:? CT ABDOMEN PELVIS W CON ? INDICATIONS:? LL buttock absc/cellulitis, start Tues prostate massage Mon. ? TECHNIQUE:? After the administration of intravenous contrast, axial sections acquired from the lung bases to the pubic symphysis.? Coronal and sagittal reformats were performed.? For radiation dose reduction, the following was used:? automated exposure control, adjustment of mA and/or kV according to patient size.? ? COMPARISON:? None. ? FINDINGS:? Image quality:? Excellent.? ? Lung bases:? Unremarkable. Heart:? No significant findings. ? ABDOMEN: Liver:? Liver is normal in size.? Hepatic steatosis is seen.? Well-circumscribed hypodense areas involving lateral segment of left hepatic lobe are seen measures 2.3 x 2.5 cm in size series 2, image 24, and 1 cm in size series 2, image 20. Gallbladder:? Within normal limits. Biliary ducts:? Unremarkable.? ? Pancreas:? Unremarkable.? ? Spleen:? Unremarkable.? ? Adrenal Glands:? Unremarkable.? ? Kidneys and Ureters:? Unremarkable.? ? ? Stomach and Bowel:? There is no bowel obstruction or abnormal bowel wall thickening.? No mesenteric fat stranding.? No abscess collection. Peritoneum:? No abnormal intraperitoneal fluid.? No free air.? ? Ventral Wall: ? Moderate size umbilical hernia is seen containing fat only. Abdominal Nodes:? No retroperitoneal or mesenteric adenopathy by size criteria.? Vessels:? Aorta and inferior vena cava are normal in size.? ? PELVIS: Pelvic Organs:? Unremarkable.? ? Bladder:? Unremarkable.? ? Pelvic Nodes: No enlarged lymph nodes.? Miscellaneous:? There is extensive subcutaneous fat stranding in perianal soft tissue with subcutaneous emphysema in perianal soft tissue particularly along medial aspect of left upper thigh with air-fluid level and suggestion of developing abscess collection measures 2.8 x 6.5 cm in transverse and AP dimensions. ? Bones:? No suspicious bony lesion.? No bony erosive changes.? No acute vertebral body compression fracture.? Chronic appearing mild anterior wedge compression deformity at L1 level is seen. ? ? IMPRESSION:? 1. Left perianal/medial left upper thigh cellulitis and abscess formation as described above. 2. No peritoneal free fluid or free air.? No peritoneal abscess collection.? No bowel obstruction or abnormal bowel wall thickening. 3.? Hepatic steatosis and suggestion of left hepatic cysts as above.? Labs Result Diagrams: 03/08/21 12:45 03/08/21 12:45 Labs: Laboratory Results - last 24 hr 03/08/21 03/08/21 03/08/21 12:45 12:45 12:45 WBC 11.3 H RBC 4.40 L Hgb 14.0 Hct 41.2 MCV 93.6 MCH 31.9 MCHC 34.1 RDW 12.8 Plt Count 180 Neut % (Auto) 77.1 H Lymph % (Auto) 11.0 L [place] % (Auto) 10.8 Eos % (Auto) 0.8 L Baso % (Auto) 0.3 Neut # (Auto) 8700 H Lymph # (Auto) 1200 [place] # (Auto) 1200 H Eos # (Auto) 100 Baso # (Auto) 0 Sodium 141 Potassium 4.5 Chloride 106 Carbon Dioxide 31 BUN 12 Creatinine 0.96 Estimated GFR > 60.0 BUN/Creatinine Ratio 12.5 Glucose 102 H Lactate 1.4 Calcium 9.4 Total Bilirubin 1.2 AST 16 L ALT 14 Alkaline Phosphatase 45 Total Protein 7.1 Albumin 4.0 Globulin 3.1 Albumin/Globulin Ratio 1.3 Procalcitonin 0.08 Urine Color Urine Appearance Urine pH Ur Specific [place] Urine Protein Urine Glucose (UA) Urine Ketones Urine Occult Blood Urine Nitrate Urine Bilirubin Urine Urobilinogen Ur Leukocyte Esterase Urine RBC Urine WBC Ur Squamous Epith Cells Urine Bacteria Ur Culture Indicated? SARS-CoV-2 (PCR) 03/08/21 03/08/21 14:10 14:26 WBC RBC Hgb Hct MCV MCH MCHC RDW Plt Count Neut % (Auto) Lymph % (Auto) [place] % (Auto) Eos % (Auto) Baso % (Auto) Neut # (Auto) Lymph # (Auto) [place] # (Auto) Eos # (Auto) Baso # (Auto) Sodium Potassium Chloride Carbon Dioxide BUN Creatinine Estimated GFR BUN/Creatinine Ratio Glucose Lactate Calcium Total Bilirubin AST ALT Alkaline Phosphatase Total Protein Albumin Globulin Albumin/Globulin Ratio Procalcitonin Urine Color Yellow Urine Appearance Clear Urine pH 7.0 Ur Specific [place] 1.010 Urine Protein Trace H Urine Glucose (UA) Negative Urine Ketones 1+ H Urine Occult Blood Negative Urine Nitrate Negative Urine Bilirubin Negative Urine Urobilinogen 0.2 Ur Leukocyte Esterase Negative Urine RBC None seen Urine WBC 0-1/hpf Ur Squamous Epith Cells 0-1 /hpf Urine Bacteria None seen Ur Culture Indicated? Cult not indicated SARS-CoV-2 (PCR) Negative Assessment & Plan Assessment & Plan narrative: 1. Left buttock cellulitis and abscess, possible perianal or perirectal abscess - CT scan showing left buttock possible perirectal abscess and cellulitis. Some extension to left medial thigh. Will check ultrasound to see if there is a drainable collection visible. - Dr. Do of general surgery following. - start on ciprofloxacin and flagyl for possible perirectal abscesss. Given flagyl and vanco in the ER. - can have diet if no discreet abscess on ultrasound. Continue pain control. - will stop flomax, UA negative, seemingly less likely pain due to prostate now. - check a1c, though normal glucose on admission labs. 2. Bipolar disorder, chronic - continue home divalproex. Code: Full, as discussed with the patient. Surrogate decision maker is spouse. Dispo: Admit as inpatient COVID: negative. I have utilized all available immediate resources to obtain, update, or review the patient's current medications. COVID-19 COVID-19 status: Negative Time Spent With Patient Critical Care time: I spent a total of [] minutes of critical care time on this patient's care today; this time is exclusive of procedural time. Quality VTE Deep Vein Thrombosis/Pulmonary Embolism Present on Admission: No MIPS - Admit I confirm the patient?s Advance Care Plan is present, Code status is documented, Surrogate decision maker is in patient?s record [If Yes, STOP here]: Yes
[2021-03-08] MEDS: CIPROFLOXACIN 400 MG/200 ML PIGGYBACK 200 MG IV (18:53)
[2021-03-08] MEDS: HYDROCODONE/ACET 10/325 TABLET 1 TAB PO (18:53)
[2021-03-08] MEDS: DOCUSATE 100 MG CAPSULE PO (19:59)
[2021-03-08] MEDS: DIVALPROEX ER 250 MG TAB 1000 MG PO (21:09)
[2021-03-09] VITALS (7 sets, daily range): BP systolic 128–151; BP diastolic 64–86; PULSE 58–94; RESP 16–18; TEMP 35.6–38.1; O2SAT 93–99
[2021-03-09] MEDS: KETOROLAC 30 MG/ML VIAL IV ×2 (01:17→06:25)
[2021-03-09] MEDS: HYDROCODONE/ACET 10/325 TABLET 1 TAB PO ×2 (01:22→08:01)
[2021-03-09] MEDS: metroNIDAZOLE 500 MG/100 ML PIGGYBACK 100 MG IV ×3 (04:36→20:25)
[2021-03-09] MEDS: PANTOPRAZOLE 40 MG VIAL IV ×2 (05:43→08:01)
[2021-03-09] MEDS: CIPROFLOXACIN 400 MG/200 ML PIGGYBACK 200 MG IV ×2 (06:26→18:19)
[2021-03-09 06:55] LABS: Add Manual Diff / Slide Review NO; Basophils Absolute Auto 100 /uL (0-100); Basophils Percent Auto 0.6 % (0-2); Eosinophils Absolute Auto 100 /uL (0-450); Eosinophils Percent Auto 0.8 % (2-4); Hematocrit 39.1 % (41-53); Hemoglobin 13.2 g/dL (13.5-17.5); Lymphocytes Absolute Auto 1700 /uL (1100-4500); Lymphocytes Percent Auto 13.5 % (25-40); Mean Corpuscular HGB Conc 33.7 % (30-36); Mean Corpuscular Hemoglobin 31.9 PG (26-34); Mean Corpuscular Volume 94.6 fL (80-100); Monocytes Absolute Auto 1400 /uL (0-900); Monocytes Percent Auto 11.6 % (3-14); Neutrophils Absolute Auto 9100 /uL (1500-7000); Neutrophils Percent Auto 73.5 % (50-75); Platelet Count 171 X10^3/uL (150-400); Red Blood Cell Count 4.14 X10^6/uL (4.5-5.9); Red Cell Distribution Width 12.7 % (11.6-14.8); White Blood Cell Count 12.4 X10^3/uL (4.5-11.0)
[2021-03-09 07:37] LABS: BUN Creatinine Ratio 15.4 (6-22); Blood Urea Nitrogen 16 mg/dL (9-20); Calcium 9.1 mg/dL (8.4-10.2); Carbon Dioxide 28 mmol/L (22-32); Chloride 105 mmol/L (98-107); Estimated Glomerular Filt Rate > 60.0 mL/min (>60); Glucose 107 mg/dL (70-100); HEMOLYSIS < 15 (0-50); Magnesium 1.9 mg/dL (1.6-2.3); Potassium 4.2 mmol/L (3.4-5.1); Sodium 140 mmol/L (137-145)
[2021-03-09 07:53] LABS: Procalcitonin 0.11 ng/mL (<0.5)
[2021-03-09] MEDS: DOCUSATE 100 MG CAPSULE PO ×2 (08:01→20:25)
[2021-03-09] MEDS: polyethylene glycoL 3350 17 GM POWD.PACK PO (08:55)
--- NOTE | 2021-03-09 10:50 | PM.CN ---
History of Present Illness Consult details Date Patient Seen: 03/09/21 Time Patient Seen: 09:45 Chief complaint: painful swollen mass on left side of buttox Reason for consult: Noe rectal abscess Requesting provider: Mishel Adames Narrative: Patient seen by Urology on Thursday for possible prostatitis. Had manipulation of prostate for fluid (culture negative so far). Pain worsened and he reported to the ED Thursday with increased pain left buttock and fever. No report of drainage. Pain with BM but no blood or mucus. CT scan that I reviewed personally shows infection/abscess cavity with fluid and air. Air tracts to the prostate which may represent a spontaneous drainage into the rectum. US done to show no fluid to be drained. Today he is less painful, fever has subsided. Meds Home Medications and Allergies Home Medications Medication Instructions Recorded Confirmed Type ciprofloxacin HCl 500 mg tablet 500 mg PO BID #14 tab 02/03/21 03/08/21 Rx (Cipro) divalproex 500 mg tablet,extended 1,000 mg PO QPM 03/08/21 03/08/21 History release 24 hr tamsulosin 0.4 mg capsule 0.4 mg PO QPM 03/08/21 03/08/21 History Allergies Allergy/AdvReac Type Severity Reaction Status Date / Time erythromycin base Allergy Severe Anaphylaxis Verified 03/08/21 17:13 Macrolide Antibiotics Allergy Severe Anaphylaxis Verified 03/08/21 17:13 Penicillins Allergy Severe Anaphylaxis Verified 03/08/21 17:13 Exam Vital Signs (past 8 hours): - 03/09/21 05:20 03/09/21 08:00 Temperature 98.2 F 96.1 F L Pulse Rate 77 58 L Respiratory Rate 18 16 Blood Pressure 132/86 151/64 H Pulse Oximetry 96 99 Oxygen Delivery Method Room Air Oxygen Flow Rate 0 Const General: cooperative Nutritional Appearance: overweight HENMT Head: normal to inspection Ears: hearing grossly normal bilaterally Eyes General: appearance normal, both eyes and all related structures Neck Neck: trachea midline Chest Chest: normal inspection of the chest Resp Effort & Inspection: normal respiratory effort and able to speak in complete sentences Cardio Rate: regular rate Rhythm: regular rhythm GI Inspection: normal to inspection Palpation: soft Other: Rectal exam not done due to pain Skin Other: enduration of left buttock in the perianal region. Mild erythema marked by staff has receded. Neuro General: patient alert and patient oriented x3 Cognition: normal cognition Extrem General: full ROM Psych Appearance: grossly normal Judgment: judgment good Objective Labs Result Diagrams: 03/09/21 06:15 03/09/21 06:15 Labs: Laboratory Results - last 24 hr 03/08/21 03/08/21 03/08/21 12:45 12:45 12:45 WBC 11.3 H RBC 4.40 L Hgb 14.0 Hct 41.2 MCV 93.6 MCH 31.9 MCHC 34.1 RDW 12.8 Plt Count 180 Neut % (Auto) 77.1 H Lymph % (Auto) 11.0 L [place] % (Auto) 10.8 Eos % (Auto) 0.8 L Baso % (Auto) 0.3 Neut # (Auto) 8700 H Lymph # (Auto) 1200 [place] # (Auto) 1200 H Eos # (Auto) 100 Baso # (Auto) 0 Sodium 141 Potassium 4.5 Chloride 106 Carbon Dioxide 31 BUN 12 Creatinine 0.96 Estimated GFR > 60.0 BUN/Creatinine Ratio 12.5 Glucose 102 H Lactate 1.4 Calcium 9.4 Magnesium Total Bilirubin 1.2 AST 16 L ALT 14 Alkaline Phosphatase 45 Total Protein 7.1 Albumin 4.0 Globulin 3.1 Albumin/Globulin Ratio 1.3 Procalcitonin 0.08 Urine Color Urine Appearance Urine pH Ur Specific [place] Urine Protein Urine Glucose (UA) Urine Ketones Urine Occult Blood Urine Nitrate Urine Bilirubin Urine Urobilinogen Ur Leukocyte Esterase Urine RBC Urine WBC Ur Squamous Epith Cells Urine Bacteria Ur Culture Indicated? SARS-CoV-2 (PCR) 03/08/21 03/08/21 03/09/21 14:10 14:26 06:15 WBC 12.4 H RBC 4.14 L Hgb 13.2 L Hct 39.1 L MCV 94.6 MCH 31.9 MCHC 33.7 RDW 12.7 Plt Count 171 Neut % (Auto) 73.5 Lymph % (Auto) 13.5 L [place] % (Auto) 11.6 Eos % (Auto) 0.8 L Baso % (Auto) 0.6 Neut # (Auto) 9100 H Lymph # (Auto) 1700 [place] # (Auto) 1400 H Eos # (Auto) 100 Baso # (Auto) 100 Sodium Potassium Chloride Carbon Dioxide BUN Creatinine Estimated GFR BUN/Creatinine Ratio Glucose Lactate Calcium Magnesium Total Bilirubin AST ALT Alkaline Phosphatase Total Protein Albumin Globulin Albumin/Globulin Ratio Procalcitonin Urine Color Yellow Urine Appearance Clear Urine pH 7.0 Ur Specific [place] 1.010 Urine Protein Trace H Urine Glucose (UA) Negative Urine Ketones 1+ H Urine Occult Blood Negative Urine Nitrate Negative Urine Bilirubin Negative Urine Urobilinogen 0.2 Ur Leukocyte Esterase Negative Urine RBC None seen Urine WBC 0-1/hpf Ur Squamous Epith Cells 0-1 /hpf Urine Bacteria None seen Ur Culture Indicated? Cult not indicated SARS-CoV-2 (PCR) Negative 03/09/21 06:15 WBC RBC Hgb Hct MCV MCH MCHC RDW Plt Count Neut % (Auto) Lymph % (Auto) [place] % (Auto) Eos % (Auto) Baso % (Auto) Neut # (Auto) Lymph # (Auto) [place] # (Auto) Eos # (Auto) Baso # (Auto) Sodium 140 Potassium 4.2 Chloride 105 Carbon Dioxide 28 BUN 16 Creatinine 1.04 Estimated GFR > 60.0 BUN/Creatinine Ratio 15.4 Glucose 107 H Lactate Calcium 9.1 Magnesium 1.9 Total Bilirubin AST ALT Alkaline Phosphatase Total Protein Albumin Globulin Albumin/Globulin Ratio Procalcitonin 0.11 Urine Color Urine Appearance Urine pH Ur Specific [place] Urine Protein Urine Glucose (UA) Urine Ketones Urine Occult Blood Urine Nitrate Urine Bilirubin Urine Urobilinogen Ur Leukocyte Esterase Urine RBC Urine WBC Ur Squamous Epith Cells Urine Bacteria Ur Culture Indicated? SARS-CoV-2 (PCR) [facility] Medical History Bipolar 1 disorder Surgical History S/P foot surgery, right Family History Mother Cancer Father Cancer Social History household members: spouse Tobacco & Substance Use Smoking Status: Former smoker alcohol intake: current Assessment & Plan Assessment & Plan narrative: Likely noe rectal abscess originally and not prostatitis. CT and US are consistent with spontaneous trans rectal drainage. Not responding as quickly to IV antibiotics as I would expect. Plan: continue antibiotics and re evaluate in am. If not dramatically better then consider Exam Under Anesthesia with possible drainage. COVID-19 COVID-19 status: Negative Time Spent With Patient Time with patient: 30 to 49 minutes with 50% spent counseling/coordinating care Critical Care time: I spent a total of [] minutes of critical care time on this patient's care today; this time is exclusive of procedural time.
[2021-03-09] MEDS: KETOROLAC 10 MG TABLET PO ×2 (11:18→18:20)
[2021-03-09] MEDS: ACETAMINOPHEN 325 MG TABLET 975 MG PO ×2 (11:39→21:09)
[2021-03-09 12:00] LABS: Hemoglobin A1C% w Est Avg Glu 4.9 % (4.0-6.0)
--- NOTE | 2021-03-09 12:27 | PM.PN.1 ---
Subjective Subjective Date Patient Seen: 03/09/21 Time Patient Seen: 11:05 Interval history: 50 year old male admitted with left buttock cellulitis and possible abscess. Surgery following. Somewhat improved with IV antibiotics but he still has a lot of pain as is uncomfortable. No fever overnight. slight improvement in swelling today. Exam Vital Signs (past 8 hours): - 03/09/21 05:20 03/09/21 08:00 03/09/21 11:15 Temperature 98.2 F 96.1 F L 98.5 F Pulse Rate 77 58 L 76 Respiratory Rate 18 16 16 Blood Pressure 132/86 151/64 H 133/81 Pulse Oximetry 96 99 Oxygen Delivery Method Room Air Oxygen Flow Rate 0 Narrative Exam Narrative: ?GENERAL APPEARANCE: Well developed, well nourished, in moderate discomfort due to pain lying in a right lateral recumbent position SKIN: mild left buttock erythema, no other rashes or skin lesions. HEENT:? Normocephalic atraumatic, extraocular muscles are intact, oropharynx is clear and mucous membranes are moist NECK: Supple and symmetric. There was no thyroid enlargement, and no tenderness, or masses were felt. CHEST: Normal AP diameter and normal contour without any kyphoscoliosis. LUNGS: Auscultation of the lungs revealed no wheezes, rhonchi, or rales. CARDIOVASCULAR: There was a regular rate and rhythm without any murmurs, gallops, rubs. Peripheral pulses were 2+ and symmetric. ABDOMEN: Soft, nontender, nondistended. Rectum: external exam performed, left sided buttock swelling, tender, slightly worsened but still mild erythema, swelling and firmness extends to left upper thigh, slightly improved.. MUSCULOSKELETAL: There was no tenderness or effusions noted. Muscle strength and tone were normal. EXTREMITIES: No cyanosis, clubbing or edema. NEUROLOGIC: Alert and oriented x 3. Normal affect. Gait was normal. Strength is +5/5 in the Upper Extremities and Lower Extremities Bilaterally. Sensation to touch was normal. Objective Labs Result Diagrams: 03/09/21 06:15 03/09/21 06:15 Labs: Laboratory Results - last 24 hr 03/08/21 03/08/21 03/08/21 12:45 12:45 12:45 WBC 11.3 H RBC 4.40 L Hgb 14.0 Hct 41.2 MCV 93.6 MCH 31.9 MCHC 34.1 RDW 12.8 Plt Count 180 Neut % (Auto) 77.1 H Lymph % (Auto) 11.0 L [place] % (Auto) 10.8 Eos % (Auto) 0.8 L Baso % (Auto) 0.3 Neut # (Auto) 8700 H Lymph # (Auto) 1200 [place] # (Auto) 1200 H Eos # (Auto) 100 Baso # (Auto) 0 Sodium 141 Potassium 4.5 Chloride 106 Carbon Dioxide 31 BUN 12 Creatinine 0.96 Estimated GFR > 60.0 BUN/Creatinine Ratio 12.5 Glucose 102 H Hemoglobin A1c Lactate 1.4 Calcium 9.4 Magnesium Total Bilirubin 1.2 AST 16 L ALT 14 Alkaline Phosphatase 45 Total Protein 7.1 Albumin 4.0 Globulin 3.1 Albumin/Globulin Ratio 1.3 Procalcitonin 0.08 Urine Color Urine Appearance Urine pH Ur Specific [place] Urine Protein Urine Glucose (UA) Urine Ketones Urine Occult Blood Urine Nitrate Urine Bilirubin Urine Urobilinogen Ur Leukocyte Esterase Urine RBC Urine WBC Ur Squamous Epith Cells Urine Bacteria Ur Culture Indicated? SARS-CoV-2 (PCR) 03/08/21 03/08/21 03/09/21 14:10 14:26 06:15 WBC 12.4 H RBC 4.14 L Hgb 13.2 L Hct 39.1 L MCV 94.6 MCH 31.9 MCHC 33.7 RDW 12.7 Plt Count 171 Neut % (Auto) 73.5 Lymph % (Auto) 13.5 L [place] % (Auto) 11.6 Eos % (Auto) 0.8 L Baso % (Auto) 0.6 Neut # (Auto) 9100 H Lymph # (Auto) 1700 [place] # (Auto) 1400 H Eos # (Auto) 100 Baso # (Auto) 100 Sodium Potassium Chloride Carbon Dioxide BUN Creatinine Estimated GFR BUN/Creatinine Ratio Glucose Hemoglobin A1c Lactate Calcium Magnesium Total Bilirubin AST ALT Alkaline Phosphatase Total Protein Albumin Globulin Albumin/Globulin Ratio Procalcitonin Urine Color Yellow Urine Appearance Clear Urine pH 7.0 Ur Specific [place] 1.010 Urine Protein Trace H Urine Glucose (UA) Negative Urine Ketones 1+ H Urine Occult Blood Negative Urine Nitrate Negative Urine Bilirubin Negative Urine Urobilinogen 0.2 Ur Leukocyte Esterase Negative Urine RBC None seen Urine WBC 0-1/hpf Ur Squamous Epith Cells 0-1 /hpf Urine Bacteria None seen Ur Culture Indicated? Cult not indicated SARS-CoV-2 (PCR) Negative 03/09/21 03/09/21 06:15 06:15 WBC RBC Hgb Hct MCV MCH MCHC RDW Plt Count Neut % (Auto) Lymph % (Auto) [place] % (Auto) Eos % (Auto) Baso % (Auto) Neut # (Auto) Lymph # (Auto) [place] # (Auto) Eos # (Auto) Baso # (Auto) Sodium 140 Potassium 4.2 Chloride 105 Carbon Dioxide 28 BUN 16 Creatinine 1.04 Estimated GFR > 60.0 BUN/Creatinine Ratio 15.4 Glucose 107 H Hemoglobin A1c 4.9 Lactate Calcium 9.1 Magnesium 1.9 Total Bilirubin AST ALT Alkaline Phosphatase Total Protein Albumin Globulin Albumin/Globulin Ratio Procalcitonin 0.11 Urine Color Urine Appearance Urine pH Ur Specific [place] Urine Protein Urine Glucose (UA) Urine Ketones Urine Occult Blood Urine Nitrate Urine Bilirubin Urine Urobilinogen Ur Leukocyte Esterase Urine RBC Urine WBC Ur Squamous Epith Cells Urine Bacteria Ur Culture Indicated? SARS-CoV-2 (PCR) [facility] Medical History Bipolar 1 disorder Surgical History S/P foot surgery, right Family History Mother Cancer Father Cancer Social History household members: spouse Smoking Status: Former smoker alcohol intake: current Assessment & Plan Assessment & Plan narrative: 1. Left buttock cellulitis and abscess, possible perianal or perirectal abscess ?- CT scan showing left buttock possible perirectal abscess and cellulitis. Some extension to left medial thigh. US without drainable fluid collection. ?- Dr. Do of general surgery following, plan for possible EUA or drainage tomorrow if no improvement over the course of today and tomorrow AM. Will make NPO at midnight. ?- continue ciprofloxacin and flagyl for possible perirectal abscesss. Given flagyl and vanco in the ER. ?- can have diet if no discreet abscess on ultrasound. Continue pain control. - will stop flomax, UA negative, seemingly less likely pain due to prostate now. - A1c 4.9%. 2. Bipolar disorder, chronic ?- continue home divalproex. Code: Full, as discussed with the patient. Surrogate decision maker is spouse. Dispo: Admitted as inpatient, plan for home, timing unclear. COVID: negative. COVID-19 COVID-19 status: Negative Time Spent With Patient Critical Care time: I spent a total of [] minutes of critical care time on this patient's care today; this time is exclusive of procedural time. Quality VTE Deep Vein Thrombosis/Pulmonary Embolism Present on Admission: No
--- NOTE | 2021-03-09 13:56 | CM.DANOTE ---
Patient is a 50 yo male who was admitted on 03/08/21 for Painful swollen mass on buttocks. Pt has REG PPO for insurance and his PCP is Javier Lake. EMR was reviewed. Per MD, pt with hx of bipolar do and admitted for IV-Abx for failed outpt tx for likely perirectal and buttocks abscess. Per Surgeon Consult, pt does not appear to be responding as quickly to the IV-Abx as anticipated and will allow for another day of IV-Abx tx and assess tomorrow if I&D needed. SW met bedside with pt and he just refused his meal tray and states he is not feeling well or up for talking. Pt confirmed that he lives with spouse in [place] and is independent at baseline. Pt hopeful to feel much better soon. Pt denies any hx of hospital admissions here. Plan: SW to follow closely tomorrow to determine if I&D needed vs conservative tx with IV-Abx and any further identified discharge planning needs. LACIE Mo Discharge Planning/Care Management Advanced directive, confirm from FAMILY Start: 03/08/21 17:30 Freq: Q24H Status: Active Protocol: Document 03/08/21 17:32 AKP (Rec: 03/08/21 17:32 AKP [id number]) Advance Directive, confirm on record Time 17:32 Person contacted Copy received No CM Discharge Assessment Start: 03/09/21 13:55 Freq: Status: Active Protocol: Document 03/09/21 13:55 BF (Rec: 03/09/21 13:56 BF [id number]) Discharge Planning Assessment Assigned [employer] Molder LACIE Marr DPOA/Assigned Designee Name informally spouse Mary Contact Information [phone] Advance Directives? Yes Advance Directives on File No History Provided By Patient,Medical Record Has Patient been admitted in last 30 No days? Prior Living Arrangements House Household Members spouse Type of transporation used prior to Drives own vehicle admit Independent with ADL's Yes Is patient alert and oriented? Yes Caregiver for Another No Comment Pending IV-Abx and possible I& D Barriers to Discharge No Discharge Plan Home Transportation Arrangement Spouse can likely provide transport home Referrals Initiated None needed Review Status In Process Please Provide Date Initial DC 03/09/21 Assessment Was Performed Next Review Type Continued Stay Review
[2021-03-09] MEDS: LIDOCAINE 5% OINT 35 GM 1 APPLIC TOP (14:02)
[2021-03-09] MEDS: OXYCODONE IR 10 MG TABLET PO ×2 (15:54→20:25)
[2021-03-09] MEDS: DIVALPROEX ER 250 MG TAB 1000 MG PO (20:25)
--- NOTE | 2021-03-09 22:32 | PC.NURSE ---
Patient temp 101.2, too early to give tylenol. Notified Dr. Littlejohn of [facility], no new orders.
[2021-03-10] VITALS (17 sets, daily range): BP systolic 98–140; BP diastolic 59–91; PULSE 54–89; RESP 12–18; TEMP 36.2–37.9; O2SAT 91–97
[2021-03-10] MEDS: KETOROLAC 10 MG TABLET PO ×3 (00:14→16:19)
[2021-03-10] MEDS: OXYCODONE IR 10 MG TABLET PO ×3 (03:36→09:05)
[2021-03-10] MEDS: metroNIDAZOLE 500 MG/100 ML PIGGYBACK 100 MG IV (04:26)
--- NOTE | 2021-03-10 04:45 | PC.NURSE ---
Patient was complaining of increasing pressure and gas pains in lower abdomen. Patient stated that it felt like he needed to pee and could not and requested a bladder scan. Bladder scan was done and patient had 345cc of urine. Patient stated that the scan made him feel like he could urinate and would try. Will continue to monitor.
[2021-03-10 05:44] LABS: Add Manual Diff / Slide Review NO; Basophils Absolute Auto 100 /uL (0-100); Basophils Percent Auto 0.5 % (0-2); Eosinophils Absolute Auto 100 /uL (0-450); Eosinophils Percent Auto 0.7 % (2-4); Hematocrit 37.9 % (41-53); Hemoglobin 12.9 g/dL (13.5-17.5); Lymphocytes Absolute Auto 1500 /uL (1100-4500); Lymphocytes Percent Auto 10.5 % (25-40); Mean Corpuscular HGB Conc 34.1 % (30-36); Mean Corpuscular Hemoglobin 32.1 PG (26-34); Mean Corpuscular Volume 94.2 fL (80-100); Monocytes Absolute Auto 1600 /uL (0-900); Neutrophils Absolute Auto 10900 /uL (1500-7000); Neutrophils Percent Auto 77.3 % (50-75); Platelet Count 182 X10^3/uL (150-400); Red Blood Cell Count 4.02 X10^6/uL (4.5-5.9); Red Cell Distribution Width 12.7 % (11.6-14.8); White Blood Cell Count 14.2 X10^3/uL (4.5-11.0)
[2021-03-10 05:57] LABS: BUN Creatinine Ratio 15.6 (6-22); Blood Urea Nitrogen 15 mg/dL (9-20); Calcium 8.9 mg/dL (8.4-10.2); Carbon Dioxide 29 mmol/L (22-32); Chloride 100 mmol/L (98-107); Estimated Glomerular Filt Rate > 60.0 mL/min (>60); Glucose 104 mg/dL (70-100); HEMOLYSIS < 15 (0-50); Magnesium 1.8 mg/dL (1.6-2.3); Potassium 3.9 mmol/L (3.4-5.1); Sodium 136 mmol/L (137-145)
[2021-03-10] MEDS: CIPROFLOXACIN 400 MG/200 ML PIGGYBACK 200 MG IV (05:58)
[2021-03-10] MEDS: PANTOPRAZOLE DR 40 MG TABLET PO (06:04)
[2021-03-10] MEDS: DOCUSATE 100 MG CAPSULE PO ×2 (09:05→20:31)
[2021-03-10] MEDS: polyethylene glycoL 3350 17 GM POWD.PACK PO (09:05)
--- NOTE | 2021-03-10 09:08 | PM.PREOP ---
Pre-operative Note COVID-19 COVID-19 status: Negative Result date/Date tested (Pos, Neg/Pending): 03/08/21 Interval Note History & Physical reviewed/Exam performed by Physician: Yes Changes to H&P: Yes H&P completed within 30 days and has changed as indicated here:: Patient has persistent pain, fever and elevated WBC to indicate undrained abscess.
--- NOTE | 2021-03-10 09:30 | P.PN_ITS ---
Subjective Subjective Date Patient Seen: 03/10/21 Time Patient Seen: 09:31 Interval history: ?50 year old male admitted with left buttock cellulitis and possible abscess. Surgery following. Somewhat improved with IV antibiotics but he still has a lot of pain as is uncomfortable. Low grade fever overnight to 100.5 on round the clock tylenol. Exam Vital Signs (past 8 hours): - 03/10/21 03:40 03/10/21 08:07 Temperature 97.6 F 100.2 F H Pulse Rate 77 89 Respiratory Rate 16 16 Blood Pressure 140/91 H 120/65 Pulse Oximetry 97 93 Oxygen Delivery Method Room Air Oxygen Flow Rate 0 Narrative Exam Narrative: ?GENERAL APPEARANCE: Well developed, well nourished, in moderate discomfort due to pain LUNGS: Auscultation of the lungs revealed no wheezes, rhonchi, or rales. CARDIOVASCULAR: There was a regular rate and rhythm without any murmurs, gallops, rubs. Peripheral pulses were 2+ and symmetric. ABDOMEN: Soft, nontender, nondistended. MUSCULOSKELETAL: There was no tenderness or effusions noted. Muscle strength and tone were normal. EXTREMITIES: No cyanosis, clubbing or edema. NEUROLOGIC: Alert and oriented x 3. Normal affect. Strength is +5/5 in the Upper Extremities and Lower Extremities Bilaterally. Sensation to touch was normal. Objective Labs Result Diagrams: 03/10/21 05:28 03/10/21 05:28 Labs: Laboratory Results - last 24 hr 03/09/21 03/10/21 03/10/21 06:15 05:28 05:28 WBC 14.2 H RBC 4.02 L Hgb 12.9 L Hct 37.9 L MCV 94.2 MCH 32.1 MCHC 34.1 RDW 12.7 Plt Count 182 Neut % (Auto) 77.3 H Lymph % (Auto) 10.5 L [place] % (Auto) 11.0 Eos % (Auto) 0.7 L Baso % (Auto) 0.5 Neut # (Auto) 11827 H Lymph # (Auto) 1500 [place] # (Auto) 1600 H Eos # (Auto) 100 Baso # (Auto) 100 Sodium 136 L Potassium 3.9 Chloride 100 Carbon Dioxide 29 BUN 15 Creatinine 0.96 Estimated GFR > 60.0 BUN/Creatinine Ratio 15.6 Glucose 104 H Hemoglobin A1c 4.9 Calcium 8.9 Magnesium 1.8 [facility] Medical History Bipolar 1 disorder Surgical History S/P foot surgery, right Family History Mother Cancer Father Cancer Social History household members: spouse Smoking Status: Former smoker alcohol intake: current Assessment & Plan Assessment & Plan narrative: 1. Left buttock cellulitis and abscess, possible perianal or perirectal abscess ?- CT scan showing left buttock possible perirectal abscess and cellulitis. Some extension to left medial thigh. US without drainable fluid collection. ?- Dr. Do of general surgery following, EUA or drainage reportedly today with surgery. Follow up any operative cultures. ?- continue ciprofloxacin and flagyl for possible perirectal abscesss. Given flagyl and vanco in the ER. - stopped flomax, UA negative, seemingly less likely pain due to prostate now. - A1c 4.9%. 2. Bipolar disorder, chronic ?- continue home divalproex. Code: Full, as discussed with the patient. Surrogate decision maker is spouse. Dispo: Admitted as inpatient, plan for home, timing unclear. COVID: negative. Time Spent With Patient Critical Care time: I spent a total of [] minutes of critical care time on this patient's care today; this time is exclusive of procedural time. Quality VTE Deep Vein Thrombosis/Pulmonary Embolism Present on Admission: No
--- NOTE | 2021-03-10 10:42 | CM.DPNOTE ---
DCP Note According to Dr Littlejohn, patient going to the OR today per Dr. Do of general surgery following, EUA or drainage reportedly today with surgery. Cultures will be taken and sent DCP team will plan to follow closely and assess needs post operatively. Patient is indp. and active at baseline, will likely prefer to return home w/outpatient supports if needed and/or available to him JW
--- NOTE | 2021-03-10 10:48 | PC.NURSE ---
Day shift: Pt off AC unit for procedure at approx 1050.
[2021-03-10] MEDS: LACTATED RINGERS 1,000 ML 42 ML IV (11:00)
[2021-03-10] MEDS: BUPIVACAINE 0.5% (PF) VIAL 30 ML INJ (11:29)
[2021-03-10] MEDS: EPINEPHrine 1 MG/ML 0.15 MG INJ (11:31)
--- NOTE | 2021-03-10 11:44 | SUR.OPER ---
Lithotomy on padded OR bed, head on pillow, arms secured on padded arm boards at <90 degrees abduction. Legs secured in padded yellow fins stirrups.
--- NOTE | 2021-03-10 11:51 | PM.OP.1 ---
Operative Date/Time/Diagnoses Date of procedure: 03/10/21 Time of procedure: 11:51 Pre-op diagnosis: noe rectal Post-op diagnosis: same Procedure & Clinicians Procedure: Incision and drainage of perirectal abscess Same procedure as scheduled: Yes Indications: Perirectal abscess Surgeon: Comfort Do Click Yes if Unassisted: Yes Anesthesia Type: General Operative Notes Findings: Perirectal abscess with purulent drainage and gas Closure Type: primary Specimen(s): other (Culture) Estimated Blood Loss (mL): 10 Procedure in detail: Preop diagnosis: Perirectal abscess Postop diagnosis: Same Operative procedure: Incision and drainage of perirectal abscess Surgeon: Rosa Do MD Anesthesiologist: Eloisa herrera MD Findings: Perirectal abscess with gas and purulent drainage Procedure: Patient placed in a lithotomy position. Prepped in sterile fashion. Local anesthetic was injected prior to incision in a radial fashion in the left perianal position at 3:00 o'clock. Approximately the 30 cc of pus and gas were expelled. A quarter-inch Cathy drain was placed into the abscess cavity and sutured to the skin with 3-0 nylon. Cultures were sent from the drainage. Dry dressings were placed. Patient was awakened, extubated, taken to recovery room in stable condition. Needle, instrument, sponge counts were correct. Blood loss: 15 mL Specimen: Cultures Complications: none Post-operative Condition: stable Disposition: PACU
--- NOTE | 2021-03-10 12:04 | SUR.PHASEI ---
Pt to PACU in bed with Dr Rowan and Samaria YEBOAH after general anesthesia. Pt breathing unassisted with oral airway, oxygen at 8L via simple mask.
--- NOTE | 2021-03-10 12:46 | PC.NURSE ---
Day shift: Pt back on AC unit from PACU at approx 1245.2L NC 95%. BP 108/75. Denies any pain or nausea. Scant amount of drainage from drain on ABD dressing. Tolerating calf SCD's. Spouse in room for support. Call light in reach. He is A&Ox4.
--- NOTE | 2021-03-10 12:51 | SUR.PHASEI ---
Patient transfered to room 209 in bed with this RN in bed with 4L oxygen via NC. Pt awake, alert, SBAR report to Vinh RN and dressing viewed . Bed in low position. Call light in reach.
[2021-03-10] MEDS: LACTATED RINGERS 1,000 ML 120 ML IV ×2 (13:16→21:34)
[2021-03-10] MEDS: TAMSULOSIN 0.4 MG CAPSULE PO (16:19)
[2021-03-10] MEDS: DIVALPROEX ER 250 MG TAB 1000 MG PO (20:31)
[2021-03-10] MEDS: CIPROFLOXACIN 250 MG TABLET 500 MG PO (20:31)
[2021-03-11] VITALS (7 sets, daily range): BP systolic 106–150; BP diastolic 63–91; PULSE 44–92; RESP 17–20; TEMP 36.1–36.6; O2SAT 95–97
[2021-03-11] MEDS: OXYCODONE IR 10 MG TABLET PO ×2 (00:01→08:02)
[2021-03-11] MEDS: LACTATED RINGERS 1,000 ML 120 ML IV (05:51)
[2021-03-11] MEDS: PANTOPRAZOLE DR 40 MG TABLET PO (06:00)
[2021-03-11] MEDS: KETOROLAC 10 MG TABLET PO (06:01)
[2021-03-11 06:49] LABS: Add Manual Diff / Slide Review NO; Basophils Absolute Auto 0 /uL (0-100); Basophils Percent Auto 0.1 % (0-2); Eosinophils Absolute Auto 0 /uL (0-450); Hematocrit 36.9 % (41-53); Hemoglobin 12.4 g/dL (13.5-17.5); Lymphocytes Absolute Auto 1100 /uL (1100-4500); Lymphocytes Percent Auto 8.9 % (25-40); Mean Corpuscular HGB Conc 33.7 % (30-36); Mean Corpuscular Hemoglobin 31.8 PG (26-34); Mean Corpuscular Volume 94.6 fL (80-100); Monocytes Absolute Auto 800 /uL (0-900); Monocytes Percent Auto 6.1 % (3-14); Neutrophils Absolute Auto 10700 /uL (1500-7000); Neutrophils Percent Auto 84.9 % (50-75); Platelet Count 188 X10^3/uL (150-400); White Blood Cell Count 12.5 X10^3/uL (4.5-11.0)
[2021-03-11 07:00] LABS: BUN Creatinine Ratio 23.7 (6-22); Blood Urea Nitrogen 23 mg/dL (9-20); Carbon Dioxide 29 mmol/L (22-32); Chloride 101 mmol/L (98-107); Estimated Glomerular Filt Rate > 60.0 mL/min (>60); Glucose 140 mg/dL (70-100); HEMOLYSIS < 15 (0-50); Magnesium 2.2 mg/dL (1.6-2.3); Potassium 4.5 mmol/L (3.4-5.1); Sodium 136 mmol/L (137-145)
[2021-03-11] MEDS: polyethylene glycoL 3350 17 GM POWD.PACK PO (07:58)
[2021-03-11] MEDS: DOCUSATE 100 MG CAPSULE PO ×2 (07:58→21:00)
[2021-03-11] MEDS: CIPROFLOXACIN 250 MG TABLET 500 MG PO ×2 (08:02→21:00)
--- NOTE | 2021-03-11 08:19 | PM.EVENT ---
Event Note Event Note: Patient transferred to surgical service after drainage in the OR. Continue patient's home medications, tamsulosin discontinued on admission. Medicine to sign off at this time. Do not hesitate to contact hospitalist service for consultation or if there are additional questions.
[2021-03-11] MEDS: SODIUM CHLORIDE 0.9% 1,000 ML 1000 ML IV (09:02)
[2021-03-11] MEDS: ACETAMINOPHEN 325 MG TABLET 975 MG PO ×2 (09:21→17:05)
[2021-03-11] MEDS: MAGNESIUM CITRATE 300 ML SOLUTION PO (10:53)
[2021-03-11] MEDS: ENOXAPARIN 40 MG/0.4 ML SYRINGE SUBCUT (11:20)
--- NOTE | 2021-03-11 11:26 | P.PN_ITS ---
Subjective Subjective Date Patient Seen: 03/11/21 Time Patient Seen: 10:00 Interval history: s/p I and D of perirectal abscess Exam Vital Signs (past 8 hours): - 03/11/21 03:32 03/11/21 07:50 Temperature 96.9 F L 97.8 F Pulse Rate 92 H 48 L Respiratory Rate 20 18 Blood Pressure 130/72 106/69 Pulse Oximetry 96 95 Oxygen Delivery Method Nasal Cannula Oxygen Flow Rate 0 Narrative Exam Narrative: marked improvement with resolution of urinary retention. No fevers and decreased WBC. No BM since Thursday. Drain in place with appropriate drainage. Objective Labs Result Diagrams: 03/11/21 06:25 03/11/21 06:25 Labs: Laboratory Results - last 24 hr 03/11/21 03/11/21 06:25 06:25 WBC 12.5 H RBC 3.90 L Hgb 12.4 L Hct 36.9 L MCV 94.6 MCH 31.8 MCHC 33.7 RDW 13.0 Plt Count 188 Neut % (Auto) 84.9 H Lymph % (Auto) 8.9 L [place] % (Auto) 6.1 Eos % (Auto) 0.0 L Baso % (Auto) 0.1 Neut # (Auto) 20173 H Lymph # (Auto) 1100 [place] # (Auto) 800 Eos # (Auto) 0 Baso # (Auto) 0 Sodium 136 L Potassium 4.5 Chloride 101 Carbon Dioxide 29 BUN 23 H Creatinine 0.97 Estimated GFR > 60.0 BUN/Creatinine Ratio 23.7 H Glucose 140 H Calcium 9.0 Magnesium 2.2 PFSH Medical History Bipolar 1 disorder Surgical History S/P foot surgery, right Family History Mother Cancer Father Cancer Social History household members: spouse Smoking Status: Former smoker alcohol intake: current Assessment & Plan Assessment & Plan narrative: Resolving noe rectal abscess. s/p I and D. justin drain to stay another day. If released this evening (after BM) he should complete 5 more days of Cipro 500mg BID (he has some at home). Follow up in clinic this week for drain removal (ok to be a nurse visit). Time Spent With Patient Critical Care time: I spent a total of [] minutes of critical care time on this patient's care today; this time is exclusive of procedural time. Quality VTE Deep Vein Thrombosis/Pulmonary Embolism Present on Admission: No
--- NOTE | 2021-03-11 12:39 | PC.NURSE ---
Day shift: All PACU med orders d/c'd per Dr Do.
[2021-03-11] MEDS: TAMSULOSIN 0.4 MG CAPSULE PO (17:05)
[2021-03-11] MEDS: NAPROXEN 250 MG TABLET 500 MG PO (17:06)
[2021-03-11] MEDS: MAG HYDROX/ALUM/SIMETH 30 ML UDC PO (19:43)
[2021-03-11] MEDS: DIVALPROEX ER 250 MG TAB 1000 MG PO (21:00)
[2021-03-12] MEDS: ACETAMINOPHEN 325 MG TABLET 975 MG PO ×2 (00:34→08:36)
[2021-03-12 00:48] VITALS: BP 129/79; PULSE 55; RESP 16; TEMP 36.6; O2SAT 97
--- NOTE | 2021-03-12 02:38 | PC.NURSE ---
Patient is alert and oriented. Breath sounds diminished but CTA with RA sat of 97%. HRR with rate of 55 which patient reports is his normal. Denied nausea. BT present and reports he had a small loose stool earlier this shift and has since had another moderate loose stool. Denies dysuria, frequency or urgency with urination. Independent with mobility. Area of erythema on left inner buttock which is firm to touch. [place] drain noted with sanguinous drainage on pull up. Denied pain. Fall risk score is moderate but patient is steady on feet so alarm is not in use at this time. On contact isolation as wound culture gm stain had gram + cocci and final results not yet known.
[2021-03-12 05:20] VITALS: BP 120/75; PULSE 57; RESP 16; TEMP 35.9; O2SAT 98
[2021-03-12] MEDS: PANTOPRAZOLE DR 40 MG TABLET PO (06:30)
[2021-03-12] MEDS: NAPROXEN 250 MG TABLET 500 MG PO (08:35)
[2021-03-12] MEDS: CIPROFLOXACIN 250 MG TABLET 500 MG PO (08:35)
[2021-03-12] MEDS: DOCUSATE 100 MG CAPSULE PO (08:36)
[2021-03-12 08:54] VITALS: BP 110/68; PULSE 50; RESP 18; TEMP 36.6; O2SAT 94
--- NOTE | 2021-03-12 10:36 | CM.DPC ---
DCP cont: Met with patient at the bedside to make sure patient doesn't have any needs prior to DC home. Patient stated he is doing well P: DC plan is home today with no discharge planning needs. Laquita Mario RN
--- NOTE | 2021-03-12 10:48 | P.DS_ITS ---
History of Present Illness History of Present Illness Chief complaint: painful swollen mass on left side of buttox Discharge Providers Provider Date of admission: 03/08/21 16:33 Discharge Date: 03/12/21 Primary care physician: Javier Lake MD Consults: 03/08/21 17:24 Consult to General Surgery Routine Comment: Consulting Provider: Comfort Do Reason for consultation: possible alee-rectal abscess Has provider been notified: Yes 03/10/21 12:35 Consult to Respiratory Therapy Evaluate & Treat Comment: post op hypoxia requiring O2 Physician Instructions: Evaluate and treat Discharge provider: Comfort Do MD Summary Hospital Course Discharge Diagnosis: alee rectal abscess Hospital Course: Treatment initially with IV antibiotics due to partial spontaneous drainage of abscess was not progressing. I and D of perirectal abscess done. severe constipation due to treatment. Responded to mag citrate and Mirlax. Plan: drain removed, shower and or bath ok. No restriction on diet or activity. Continue on Cipro BID for another 5 days (has a script at home from urology) Needs screening colonoscopy. OK to do in 2-4 months after healed. No follow up required unless he fails to recover. Status at Discharge Cognitive/behavioral status at discharge: at baseline, oriented Time Spent with Patient Time spent: Greater than 30 minutes Exam Vital Signs (past 8 hours): - 03/12/21 05:20 03/12/21 08:54 Temperature 96.7 F L 97.8 F Pulse Rate 57 L 50 L Respiratory Rate 16 18 Blood Pressure 120/75 110/68 Pulse Oximetry 98 94 Oxygen Delivery Method Room Air Oxygen Flow Rate 0 Narrative Exam Narrative: decreased inflammation and no ongoing infection. Objective Labs Result Diagrams: 03/11/21 06:25 03/11/21 06:25 [facility] Medical History Bipolar 1 disorder Surgical History S/P foot surgery, right Family History Mother Cancer Father Cancer Social History household members: spouse Smoking Status: Former smoker alcohol intake: current Discharge Assessment & Plan Assessment and Plan Assessment: Alee rectal abscess Needs colonoscopy, last one was 10+ years ago (family history of colon cancer in father and self h/o polyps) Plan of Treatment: 5 more days of Cipro wound care direct access colonoscopy Discharge Plan Discharge Plan Patient Disposition: Home Provider Discharge Comment: remove drain before discharge. Expect drainage for 1-3weeks but progressively less. Follow up as needed for questions or concerns. If in 4 weeks you are still having issues, call for appointment. If you are doing well, no visit is needed. You are welcome to call [facility] for any questions, any time. Discharge orders & Medications Prescriptions: New naproxen 250 mg Tablet 500 mg PO BIDWM Qty: 40 RF: 0 oxycodone 10 mg Tablet 10 mg PO Q3HR PRN (Reason: Pain, Severe (7-10)) Qty: 10 RF: 0 Continued ciprofloxacin HCl [Cipro] 500 mg tablet 500 mg PO BID Qty: 14 RF: 0 tamsulosin 0.4 mg capsule 0.4 mg PO QPM RF: 0 divalproex 500 mg tablet extended release 24 hr 1,000 mg PO QPM RF: 0 Follow up/Referrals: Javier Lake MD [Primary Care Provider] - Diet/Activity/Treatments Diet: Diet as Tolerated Diet comment: high fiber and increase fluids Activity: no restriction Skin/Wound/Dressing Care Report to your healthcare provider any signs of infection, such as:: chills, fever, night sweats, increased pain and unusual drainage Dressing: dry dressing as needed Visit Report/Discharge Packet Instructions: DI for Prescription Opioid Use, DI for Incision and Drainage, [facility]: Wound Care Stand Alone Forms: Surgery Discharge Discharge Data Primary Care Provider: Javier Lake Quality VTE Deep Vein Thrombosis/Pulmonary Embolism Present on Admission: No
--- NOTE | 2021-03-12 11:22 | PC.NURSE ---
Pt received ambulating independently in room. A&Ox3, VSS afebrile. LS CTA, BS +X4. Pt with x2 large soft BM's this a.m. Held miralax. He reports pain around buttocks incision 4-5/10 but reports well controlled with tylenol and naproxen. Declines oxycodone as well as lovenox injection. Cathy drain dc'd intact, suture removd without bleeding. He showers this a.m. and wearing brief. MD cleared patient for discharge and he acknowledges understanding of his medications, site care, symptoms worsening, activity and plan. RN escorted patient to private vehicle with with all of his belongings at approximately 1050.
== END 2021-03-12 10:50 | disposition home or self-care (01) | DRG 345 ==
LOC: ED 16:17 → AC 16:35
PROVIDERS: Admitting Provider Internal Medicine; Emergency Provider Emergency Medicine; PCP Family Medicine; Referring Provider Emergency Medicine; Visit Provider Surgery
PROC: 0D9P0ZZ Drainage of Rectum, Open Approach (ICD-10-PCS; CPT 46040; principal; 2021-03-10 10:45)
DX: K61.1 Rectal abscess (principal); L02.31 Cutaneous abscess of buttock; F31.89 Other bipolar disorder; R33.9 Retention of urine, unspecified; K59.00 Constipation, unspecified; N41.9 Inflammatory disease of prostate, unspecified; Z20.822 Contact with and (suspected) exposure to COVID-19; Z87.891 Personal history of nicotine dependence
CPT/HCPCS: 36415; 46040; 74177; 76882; 80048; 80053; 81001; 83036; 83605; 83735; 84145; 85025; 87040; 87070; 87075; 87076; 87077; 87205; 87635; 96365; 96366; 96368; 96375; 99232; 99284; 99285; C9803; C9113; J0171; J0330; J0744; J1650; J1885; J2250; J2704; J3010; Q9967

== ENCOUNTER → 2021-05-31 12:03 | Outpatient (CLI) | payer OTHER, SELFPAY ==
[2021-03-08 17:08] VITALS: BMI 35.2
[2021-05-31 13:30] LABS: COVID19 -Nasal RAPID Negative (Negative)
== END ==
PROVIDERS: PCP Family Medicine; Visit Provider Surgery
DX: Z01.812 Encounter for preprocedural laboratory examination (principal); Z20.822 Contact with and (suspected) exposure to COVID-19
CPT/HCPCS: 87635; C9803

== ENCOUNTER 2021-06-03 09:08 | Day surgery (SDC) | payer OTHER, SELFPAY ==
[2021-03-08 17:08] VITALS: BMI 35.2
[2021-06-03] VITALS (10 sets, daily range): BP systolic 104–129; BP diastolic 60–84; PULSE 54–65; RESP 12–16; TEMP 36.1–36.6; O2SAT 92–96; BMI 35.2
[2021-06-03] MEDS: LACTATED RINGERS 1,000 ML 200 ML IV (09:53)
--- NOTE | 2021-06-03 10:05 | PM.HP.1 ---
History of Present Illness History of Present Illness Date Patient Seen: 06/03/21 Time Patient Seen: 10:05 Chief complaint: SDC Narrative: The patient presents for colorectal sreening. Previous colonoscopy 5 years ago was normal he has personal history of colonic polyps. No personal or family history of colon cancer. On further history denies any recent gastrointestinal symptoms. He has occasional blood per rectum he had recent perirectal abscess drained. No Nausea, vomiting, abdominal pain, loss of appetite, unexplained weight loss, change in bowel habits. Patient History Medical History Bipolar 1 disorder Surgical History S/P foot surgery, right Family & Social History Family History Mother Cancer Father Cancer Social History: household members spouse Tobacco & Substance use: Smoking Status Former smoker alcohol intake current alcohol intake frequency a few times a month Substance Use Type marijuana Meds Home Medications and Allergies Home Medications Medication Instructions Recorded Confirmed Type divalproex 500 mg tablet,extended 500 mg PO DAILY 06/03/21 06/03/21 History release 24 hr (Depakote ER) Allergies Allergy/AdvReac Type Severity Reaction Status Date / Time erythromycin base Allergy Severe Anaphylaxis Verified 06/03/21 09:13 Macrolide Antibiotics Allergy Severe Anaphylaxis Verified 06/03/21 09:13 Penicillins Allergy Severe Anaphylaxis Verified 06/03/21 09:13 Exam Vital Signs (past 8 hours): - 06/03/21 09:30 Temperature 97.3 F L Pulse Rate 61 Respiratory Rate 16 Blood Pressure 129/84 Pulse Oximetry 96 Oxygen Delivery Method Room Air Narrative Exam Narrative: Constitutional-he is oriented to person, place and time. No apparent distress Cardiovascular- regular rate, no peripheral edema Pulmonary-unlabored respiratory effort, no audible wheezing Abdominal-soft, non-tender, non-distended Assessment & Plan Assessment & Plan narrative: The patient requires colorectal screening and colonoscopy is recommended. Technical details were discussed. Risks, benefits, alternatives explained. Risks including but not limited to myocardial infarction, aspiration, bleeding, pain, missed lesion, incomplete examination, need for further radiographic studies, colonic perforation, and need for major abdominal surgery were discussed. All questions were answered to their satisfaction, and they are in agreement with this plan. Time Spent With Patient Critical Care time: I spent a total of [] minutes of critical care time on this patient's care today; this time is exclusive of procedural time.
[2021-06-03] MEDS: fentaNYL 250 MCG/5 ML INJ IV (10:17)
[2021-06-03] MEDS: MIDAZOLAM 5 MG/5 ML VIAL IV (10:17)
--- NOTE | 2021-06-03 10:28 | PM.OP.COLON ---
Operative Date/Time/Diagnoses Date of procedure: 06/03/21 Time of procedure: 10:28 Pre-op diagnosis: Personal history of colonic polyps Post-op diagnosis: same Procedure & Clinicians Study performed: Colonoscopy Same procedure as scheduled: Yes Indications: Personal history of colonic polyps Surgeon: Gucci Leyva Procedure Notes Procedure in detail: Medications: Conscious sedation using 10mg IV midazolam and *200mcg IV of fentanyl The history and physical was performed/updated and the patient is ASA class is 2. The procedure was discussed in detail with the patient. Potential risks complications including infection, bleeding, missed diagnosis, perforation, need for surgery, and were explained. Their questions were answered and informed consent was obtained. Patient was brought to the procedure room and placed standard monitoring equipment. The patient's vital signs were monitored continuously throughout the entire procedure. Prior to starting time-out was performed. The patient was placed in the left lateral recumbent position. Procedural sedation was administered. Examination began with a thorough inspection of the perianal area there was no evidence of fissures, fistulae, external hemorrhoids or cutaneous malignancy. The colonoscopy scope was then placed into the anal canal and was advanced to the cecum, which was identified by the ileocecal valve, the appendiceal orifice and the confluence of the taenia. The scope was then slowly withdrawn examining colon thoroughly in all directions, irrigating it of any residual stool. FINDINGS 1. Masses polyps 2. Sigmoid diverticulosis The patient tolerated the procedure well. They will be discharged once criteria are met. The prep was of good/excellent quality. The withdrawl time was 6 minutes. The sedation time was 20 minutes. Specimen(s): none sent Complications: none Impression: Normal colonoscopy Post-procedure Recommendations: Colonoscopy in 10 years Disposition: same day surgery
--- NOTE | 2021-06-03 13:19 | SUR.PHASEII ---
1140a 06/03/21 Patient wide awake and alert. vss. meets criteria. Dressed self. denies pain or nausea. Discharged to home to 's car/care with all belongings and instruction paperwork.
== END 2021-06-03 11:40 | disposition home or self-care (01) ==
PROVIDERS: PCP Family Medicine; Referring Provider Surgery; Visit Provider Surgery
PROC: 0DJD8ZZ Inspection of Lower Intestinal Tract, Via Natural or Artificial Opening Endoscopic (ICD-10-PCS; CPT 45378; principal; 2021-06-03 10:00)
DX: Z12.11 Encounter for screening for malignant neoplasm of colon (principal); Z86.010 Personal history of colon polyps; F31.9 Bipolar disorder, unspecified; K57.30 Diverticulosis of large intestine without perforation or abscess without bleeding
CPT/HCPCS: 45378; 45380; 99152; J2250; J3010

== ENCOUNTER → 2022-06-30 09:04 | Outpatient (CLI) | payer OTHER, SELFPAY ==
[2022-06-25 14:54] VITALS: BMI 35.2
[2022-06-30 12:19] LABS: COVID19 -Nasal RAPID Negative (Negative)
== END ==
PROVIDERS: PCP Family Medicine; Visit Provider Surgery
DX: Z01.812 Encounter for preprocedural laboratory examination (principal); Z20.822 Contact with and (suspected) exposure to COVID-19
CPT/HCPCS: 87635; C9803

== ENCOUNTER 2022-07-01 14:02 | Day surgery (SDC) | payer OTHER, SELFPAY ==
[2022-06-25 14:54] VITALS: BMI 35.2
[2022-07-01 14:16] VITALS: BP 135/82; PULSE 55; RESP 18; TEMP 36.6; O2SAT 97
[2022-07-01 14:19] VITALS: BMI 35.9
[2022-07-01] MEDS: LACTATED RINGERS 1,000 ML 42 ML IV (14:38)
--- NOTE | 2022-07-01 15:35 | PM.PREOP ---
Pre-operative Note COVID-19 COVID-19 status: Negative Result date/Date tested (Pos, Neg/Pending): 06/30/22 Interval Note History & Physical reviewed/Exam performed by Physician: Yes Changes to H&P: No ASA Class (for procedural sedation): II
--- NOTE | 2022-07-01 16:18 | SUR.OPER ---
Lithotomy on padded OR bed, head on pillow, arms secured on padded arm boards at <90 degrees abduction. Legs secured in padded yellow fins stirrups.
[2022-07-01] MEDS: BUPIVACAINE LIPOSOME 266 MG/20 ML VIAL INJ (16:22)
--- NOTE | 2022-07-01 17:01 | PM.OP.1 ---
Operative Date/Time/Diagnoses Date of procedure: 07/01/22 Time of procedure: 17:02 Pre-op diagnosis: Fistula in ANO Post-op diagnosis: same Procedure & Clinicians Procedure: Examination under anesthesia Same procedure as scheduled: Yes Surgeon: Karl Johnson Operative Notes Procedure in detail: No antibiotic was indicated. The patient was brought to the operating room and general anesthesia was induced. The patient was placed in high lithotomy position in stirrups. The perineum was prepped and draped in the usual fashion and a time-out was performed. On inspection, there was an old surgical scar in the mid left perineum at roughly 3 o'clock. There was no tract palpable under the scar. There was an external opening about 3 cm from the anal verge at 2 o'clock. Initially, hydrogen peroxide was injected into the opening that was 3 cm from anal verge and another smaller external opening was found at about 1 cm from the anal verge also in the 2 o'clock position. This external opening was quite small and so was dilated with a small blunt probe to allow the angio catheter to be inserted here. At one point some bubbles were noted just above the dentate line at the 1 o'clock position. An attempt was made to gently probe the tract with a blunt probe from the external opening that was 1 cm from the anal verge. The tract seemed to traverse towards the anterior midline before turning back towards the dentate line however the probe could not be directed to the internal opening without concern for creating a false passage. Multiple attempts were made to reexpose the dentate line but we could never successfully connect the external opening to the internal opening. We injected some Exparel into the anoderm around the 2 external openings. EBL: 5 mL Post-operative Condition: stable Disposition: PACU
[2022-07-01 17:07] VITALS: BP 128/77; PULSE 64; RESP 16; TEMP 36.2; O2SAT 93
[2022-07-01 17:12] VITALS: BP 141/96; PULSE 63; RESP 16; O2SAT 94
[2022-07-01 17:17] VITALS: BP 136/92; PULSE 58; RESP 16; O2SAT 96
[2022-07-01 17:22] VITALS: BP 144/87; PULSE 60; RESP 16; O2SAT 94
--- NOTE | 2022-07-01 17:35 | SUR.PHASEI ---
1735: Pt A&Ox4, denies any distress, VSS, and ready to discharge home. Dressed independently. Discharge instructions reviewed with patient, and spoke with spouse to see if there were any further questions. Pt is to follow-up with colorectal surgeon. 1737: IV DC'd intact. Pt left unit in stable condition and in good spirits via w/c with RN assist to ER exit where spouse will transport patient home.
[2022-07-01 17:40] VITALS: BP 143/88; PULSE 62; RESP 15; TEMP 36.1; O2SAT 97
== END 2022-07-01 17:42 | disposition home or self-care (01) ==
PROVIDERS: PCP Family Medicine; Referring Provider Surgery; Visit Provider Surgery
PROC: (CPT 45990; principal; 2022-07-01 15:15)
DX: K60.3 Anal fistula (principal)
CPT/HCPCS: 45990; C9290; J1100; J2250; J2405; J2704; J3010